=== PATIENT | female | born 1980 | race Caucasian/White ===

== ENCOUNTER 2024-10-17 15:10 | Outpatient (AMB) | payer BC, SELFPAY ==
--- OUTSIDE RECORDS SUMMARY | 2024-07-31 09:00 | XMS_ITS ---
Author Organization [facility] Address [address] [place] [address] Care Team Providers Care Automotive Salesperson Name Role Phone LEAH MENEZES Primary Care Provider ERIC Ross [facility] [phone] Encounters Encounter Location Date Provider Diagnosis [facility] [address] [address] 07/31/2024 ERIC COATS Plan Of Treatment No Information Progress Notes * BRADLEY LINDSEYDOB:1980 (44 yo F)Acc No.[id number]:07/31/2024 Patient: Tavo LOW BRADLEY Provider: Travis COATS PA-C :1980 A ge:44 Y S ex:Female Date:07/31/2024 Address:[address] [place], [place] [address]Y [facility] Pcp:LEAH MENEZES Subjective: * Chief Complaints: * * Medical History: Objective: * Vitals: Assessment: Plan: * Treatment: * Images: Billing Information: * Visit Code: * Procedure Codes: * Electronic signature of LEONOR COATS PA-C on 10/17/2024 at 05:30 PM EDT Sign off status: Pending * Provider: Travis COATS PA-C Date: 07/31/2024 Generated for Lora anthony/Geraldine/eTesvin on: 10/17/2024 05:30 PM EDT
--- OUTSIDE RECORDS SUMMARY | 2024-10-05 10:30 | XMS_ITS ---
Author Organization [facility] [address] Address [address] [place] [address] Care Team Providers Care Furniture Inspector Name Role Phone LEAH MENEZES Primary Care Provider ERIC Ross [facility] [phone] Encounters Encounter Location Date Provider Diagnosis [facility] [address] [address] 10/05/2024 ERIC COATS Plan Of Treatment No Information Progress Notes * BRADLEY LINDSEYDOB:1980 (44 yo F)Acc No.[id number]:10/05/2024 Patient: Tavo LOW BRADLEY Provider: Travis COATS PA-C :1980 A ge:44 Y S ex:Female Date:10/05/2024 Address:[address] [place], [place] [address]Y [facility] Pcp:LEAH MENEZES Subjective: * Chief Complaints: * * Medical History: Objective: * Vitals: Assessment: Plan: * Treatment: * Images: Billing Information: * Visit Code: * Procedure Codes: * Electronic signature of LEONOR COATS PA-C on 10/17/2024 at 05:31 PM EDT Sign off status: Pending * Provider: Travis COATS PA-C Date: 10/05/2024 Generated for Lora anthony/Geraldine/eTesvin on: 10/17/2024 05:31 PM EDT
--- NOTE | 2024-10-17 15:17 | MHC.OFFVIS ---
Intake Visit Reasons: recurrent kidney stones Intake Note: New Patient is present for recurrent kidney stones Urology Rx:none Blood Thinners:none Imaging completed:none Biophysics Scientist Required: No Accompanied by: Self / Same As Patient Allergies amoxicillin (AMOXICILLIN) Allergy (Unknown, Verified 10/17/24 15:18) RASH Penicillins (PENICILLINS) Allergy (Unknown, Verified 10/17/24 15:18) RASH Sulfa (Sulfonamide Antibiotics) (SULFA(SULFONAMIDE ANTIBIOTICS)) Allergy (Unknown, Verified 10/17/24 15:18) DIFFICULTY BREATHING HPI Comments Details: Dai is a pleasant female. She is a patient of . She is seen for the following urologic conditions - nephrolithiasis Recurrent stone former - stone composition struvite 70%, appetite 30% Initiate trimethoprim Three-month follow-up repeat ultrasound Encouraged to decrease salt intake Discussed risk factor for struvite stone recurrence. Nephrolithiasis initial evaluation for nephrolithiasis, recurrent stone former First stone form 2023. Recurrent formation. Imaging - 08/02 CT Scan bilateral stones Stone composition - see above 24 hour urine evaluation - none on file Interventions - 08/02 bilateral ureteroscopy - Dr Silva Current therapeutic plan - surveillance imaging - low-dose suppression antibiotic for 3 to six-month Review of Systems Const Denies chills and Denies fever(s) Card Reports no additional complaints and Denies syncope Resp Denies cough GI Denies abdominal pain and Denies heartburn Reports as per HPI and Denies change in libido Neuro Denies syncope Psych Denies change in libido Endo Denies change in libido Physical Exam Const General: cooperative, healthy appearing, comfortable and no acute distress Orientation/consciousness: patient oriented x3 HEENT Face and sinus: Yes normal facial exam Mouth: moist mucous membranes Neck Neck: Yes normal visual inspection, Yes full ROM and Yes trachea midline Chest Chest palpation & inspection: normal inspection of the chest Resp Effort & Inspection: normal respiratory effort, able to speak in complete sentences and no respiratory distress GI Inspection: Yes normal to inspection Back/Spine/Pelvis Cervical Spine: normal cervical lordosis Thoracic/Lumbar Spine: thoracic and lumbar spine normal to inspection Skin General skin exam: no rashes or lesions noted Neuro General: patient oriented x3, gait normal, tone normal and moves all extremities Extrem General: Yes normal to inspection and Yes capillary refill normal Results AMB Urinalysis, Automated UA Leukoctes 0 Sarmad/uL Last Edit by DAWIT Liu on 10/17/24 16:28 UA Nitrite Negative Last Edit by Adrienne Song [facility] on 10/17/24 16:28 UA Urobilinogen 0.2 mg/dL Last Edit by Adrienne Song [facility] on 10/17/24 16:28 UA Protein 0 mg/dL Last Edit by Adrienne Song [facility] on 10/17/24 16:28 UA pH 6.0 Last Edit by Adrienne Song [facility] on 10/17/24 16:28 UA Blood 10 Guru/uL Last Edit by Adrienne Song [facility] on 10/17/24 16:28 UA Specific [place] 1.020 Last Edit by Adrienne Song [facility] on 10/17/24 16:28 UA Ketone Negative Last Edit by Adrienne Song [facility] on 10/17/24 16:28 UA Bilirubin 0 mg/dL Last Edit by Adrienne Song [facility] on 10/17/24 16:28 UA Glucose 0 mg/dL Last Edit by Adrienne Song [facility] on 10/17/24 16:28 Assessment & Plan Assessment & Plan (1) Bilateral nephrolithiasis: Code(s): N20.0 - Calculus of kidney Category: Medical Plan Antibiotic suppression Three-month follow-up Orders: Orders US renal BI 3 Months N20.0 - Calculus of kidney AMB Urinalysis Automated Today Z13.9 - Encounter for screening, unspecified Medications: New trimethoprim 100 mg PO DAILY 90 tabs 1RF 90 days N20.0 - Calculus of kidney, R33.9 - Retention of urine, unspecified Patient Instructions: This note is constructed using voice recognition software. While every effort has been made to ensure accuracy slubber runner errors may have been included. Imaging studies, laboratory and physical exam results were discussed and reviewed in detail. No major barriers to patient understanding were identified. An opportunity to ask questions regarding the treatment plan was provided. All questions were answered. The patient expressed understanding and agreement with the above treatment plan. The patient is aware they should contact our office by phone for worsening of their current condition or the appearance of new urologic symptoms. Compliance is encouraged with any medications and followup testing that is ordered. It is a privilege to participate in the urologic care of your patient. If you have any questions or concerns regarding treatment for the above conditions, or other urologic issues, please do not hesitate to contact me. The office telephone contact is [phone]. Sincerely, Dr Raul Noyola MD, [facility] - Urology Compassionate Specialist Care for the Genitourinary System Coding Level of Care Code New Pt Level 4 (78629) Diagnoses Bilateral nephrolithiasis N20.0
--- OUTSIDE RECORDS SUMMARY | 2024-10-17 17:31 | XMS_ITS | Encounter Summary ---
Author Organization [facility] Address [address] [place] [address] Care Team Providers Care Heater Installer Name Role Phone Sakshi Miller SEED SALES MANAGER Primary Care Provider [phone] Encounter Details Date Type Department Care Team (Late st Contact Info) Description 06/21/2024 Lab Requisition [facility] - Main Lab [address] [place] [id number] Tahira Ruff NP [address] [facility] [address] [place] [address] Calculus of kidney Social History Tobacco Use Types Packs/Day Years Used Date Smoking Tobacco: Never Assessed Comments Unknown Sex and Gender Information Value Date Recorded Sex Assigned at Not on file Legal Sex Female 1:24 PM EDT Gender Identity Not on file Sexual Orientation Not on file documented as of this encounter Plan of Treatment Not on file documented as of this encounter Procedures Procedure Name Priority Date/Time Associated Diagnosis Comments STONE ANALYSIS Routine 06/21/2024 12:00 AM EDT Calculus of kidney documented in this encounter Results * Stone analysis (06/21/2024 12:00 AM EDT) Component(s) See below 06/27/2024 1:43 PM EDT [facility] Comment: 30% Carbonate apatite (Dahllite) 70% Ammonium-magnesium phosphate hexahydrate (Struvite) Stone Weight 0.0230 g 06/27/2024 1:43 PM EDT [facility] Comment: This test was developed and its performance characteristics determined by [facility] in a manner consistent with CLIA requirements. This test has not been cleared or approved by the U.S. Food and Drug Administration. Test performed at [facility], [address], [place] [address] Magdalena Brown MD, PhD - Assistant Director Of Public Works Calculus 06/21/2024 06/21/2024 1:3 2 PM EDT Tahira Ruff NP LAB BODY FLUIDS AND STOOL S ORDERABLES Final Result [facility] [address] [place] [address] documented in this encounter Visit Diagnoses Diagnosis Calculus of kidney documented in this encounter Care Teams Heater Installer Relationship Specialty Start Date End Date Sakshi Miller NP [address] [place] [address] PCP - General Family Medicine 06/21/24 documented as of this encounter
--- OUTSIDE RECORDS SUMMARY | 2024-10-17 17:31 | XMS_ITS | Patient Health Record ---
Author Organization [facility] [address] Address [address] [place] [address] Care Team Providers Care Joint Runner Name Role Phone HUAN MENEZESA Primary Care Provider UnavailERIC Kaiser Unavailable [phone] AMY WANG Unavailable [phone] JEANA STEIN Unavailable [phone] Allergies Allergen (clinical drug ingredient) Drug/Non Drug Allergy documented on EMR Reaction Allergy Type Onset Date Status amoxicillin Amoxicillin rash Drug Allergy Act homer Penicillin rash Drug Allergy Active Substance with sulfonamide structure and antibacterial mechanism of action (substance) Sulfa Antibiotics rash Drug Allergy Active Reason For Referral No Information Medications Medication SIG (Take, Route, Frequency, Duration) Notes Start Date End Date Status Buprenorphine HCl-Naloxone HCl 8-2 MG Sublingual; Duration: 28 Days Active Wegovy 0.25mg 0.25 MG/0.5ML Inject 0.25mg Subcutaneous once weekly; Duration: 90 days 09/11/2024 Active Zepbound 2.5 MG/0.5ML Inject 2.5mg Subcutaneous weekly; Duration: 30 days Active Famotidine 40 MG 1 tablet Orally at bedtime; Duration: 30 days As needed 07/25/2024 Not-Taking Levothyroxine Sodium 25 MCG Oral; Duration: 90 Days Acti ve Zepbound 2.5 MG/0.5ML Subcutaneous; Dura tion: 28 Days Not-Taking Problems Problem Type SNOMED Code ICD Code Onset Dates Problem Status W/U Status Risk Notes Problem Overactive bladder (286334769) Overactive bladder (N32.81) Active confirmed Problem Prediabetes (013015897) Prediabetes (R73.03) Active confirmed Problem Morbid obesity (126921453) Morbid obesity (E66.01) Active confirmed Problem Acquired hypothyroidism (382617793) Acquired hypothyroidism (E03.9) Active confirmed Problem Nephrolithiasis (61479256) Nephrolithiasis (N20.0) Active confirmed Problem Body mass index 40+ - morbidly obese (263200989) BMI 40.0-44.9, adult (Z68.41) Active confirmed Problem Indigestion (985987925) Indigestion (K30) Active confirmed Problem History of opioid abuse (943080528565390) History of opioid abuse (F11.11) Active confirmed Vital Signs Heart Rate 83 /min 08/24/2024 Oximetry 98 % 08/24/2024 Blood pressure diastolic 70 mm Hg 08/24/2024 Height 59 in 08/24/2024 Blood pressure systolic 114 mm Hg 08/24/2024 Weight 207.5 lbs 08/24/2024 BMI 41.91 kg/m2 08/24/2024 Encounters Encounter Location Date Provider Diagnosis [facility] [address] [address] 04/19/2024 JEANA ORLINHOT [facility] [address] [address] 04/26/2024 JEANA ORLINHOT [facility] [address] [place] [address] 05/01/2024 TALAL WANG [facility] [address] [place] [address] 05/08/2024 TALAL WANG [facility] [address] [place] [address] 05/23/2024 TALAL WANG [facility] [address] [place] [address] 05/29/2024 TALAL WANG [facility] [address] [address] 06/08/2024 JEANA HCAZT [facility] [address] [address] 04/11/2024 ERIC LIUHAM Morbid obesity E66.0 1 ; BMI 45.0-49.9, adult Z68.42 ; Prediabetes R73.03 and Acquired hypothyroidism E03.9 [facility] [address] 05/16/2024 [facility] Morbid obesity E66.0 1 ; BMI 40.0-44.9, adult Z68.41 ; Prediabetes R73.03 ; Acquired hypothyroidism E03.9 and Nutritional counseling Z71.3 [facility] [address] [facility] [address] [place], [place] 06/19/2024 [facility] Morbid obesity E66.0 1 ; BMI 40.0-44.9, adult Z68.41 ; Prediabetes R73.03 ; Acquired hypothyroidism E03.9 ; Nutritional counseling Z71.3 and Encounter for examination of blood pressure without abnormal findings Z01.30 [facility] [address] [facility] [address] [place], [place] 07/25/2024 [facility] Morbid obesity E66.0 1 ; BMI 40.0-44.9, adult Z68.41 ; Prediabetes R73.03 ; Acquired hypothyroidism E03.9 ; Indigestion K30 ; Nutritional counseling Z71.3 and Encounter for examination of blood pressure without abnormal findings Z01.30 [facility] [address] [facility] [address] [place], [place] 08/24/2024 [facility] Morbid obesity E66.0 1 ; BMI 40.0-44.9, adult Z68.41 ; Prediabetes R73.03 ; Acquired hypothyroidism E03.9 ; Nutritional counseling Z71.3 and Encounter for examination of blood pressure without abnormal findings Z01.30 [facility] [address] [facility] [address] [place] [address] 04/11/2024 [facility] [address] [place] [address] 05/01/2024 [facility] [address] [place] [address] 06/17/2024 [facility] [address] [place] [address] 06/21/2024 [facility] [address] 08/07/2024 [facility] [address] 06/14/2024 [facility] [address] [facility] [address] [place] [address] 07/20/2024 ERIC LIUHAM [facility] [address] [address] 07/20/2024 ERIC LIUHAM [facility] [address] [address] 07/21/2024 ERIC LIUHAM [facility] [address] [address] 07/24/2024 ERIC LIUHAM [facility] [address] [address] 08/16/2024 ERIC LIUHAM [facility] [address] [address] 09/08/2024 ERIC LIUHAM [facility] [address] [address] 09/11/2024 ERIC LIUHAM [facility] [address] [address] 09/12/2024 ERIC COATS Assessments Encounter Date Diagnosis (ICD Code) Assessment Notes Treatment Notes Treatment Clinical Notes Section Notes 04/11/2024 Morbid obesity (ICD-10 - E66.01) Dai is a 43-year-old female with a H prediabetes (A1c 5.7%), anxiety, hypothyroidism, overactive bladder that presents for weight management consult. Patient was reassured and welcomed to the practice. Discussed [facility] holistic and medical approach to weight loss with emphasis on lifestyle modification. Patient is educated that a healthy lifestyle aids in combating obesity as well as reducing the risk of developing obesity-related medical complications including but not limited to diabetes and cardiovascular disease. Detailed education provided about taking steps to initiate sustainable lifestyle changes including incorporating regular physical activity, making healthy diet choices, and prioritizing mental health. Information provided about literature including The Food Rules by Alfred Hagen and Eat Fat Get Lean by Dr Donato Ponce. Handouts including lifestyle checklist, protein content of food, low calorie snacks, and cholesterol information sheet provided. Diagnostic testing/ SECA scale offered. Discussed the importance of regular SECA scale measurements to ensure healthy weight loss. 04/11/2024: Weight: 225, BMI: 45.4. Reviewed SECA/goals for implementing sustainable lifestyle changes. Patient is encouraged to increase physical activity, goal 8-10k steps/day. Also discussed the importance of strength training with proper safety/body mechanics for maintenance of muscle mass/bone health. Patient encouraged to drink 60-80oz water/day. Reviewed nutrition, recommending food diary x 1 week to ensure adequate caloric/protein intake. Goal of 80-100g protein/day. Reviewed risks, benefits, and side effects of weight management medications including phentermine, Topamax, Contrave, metformin, and GLP-1 agonist.Patient interested in GLP-1 agonist Zepbound. Denies personal/family history of medullary thyroid cancer/MEN syndrome. Rx for Zepbound 2.5 mg SC weekly sent to pharmacy. Reviewed proper use, side effects, and expectations for PA process/insurance coverage. If the medication is not covered, patient would like to initiate treatment with compounded semaglutide (as opposed to compounded tirzepatide due to cost difference). Will initiate treatment with compounded semaglutide in office today. 0.25 mg administered SC. Will transition to Zepbound should insurance cover this medication. After consultation and careful review of medical history, this patient would benefit from Zepbound based off of the following criteria met: Patient is over the age of 18 with a BMI of 45. Additional comorbidities include prediabetes, hypothyroidism. Patient has trialed other methods of weight loss including improving diet and exercise without success. This medication is prescribed by or in consultation with a board-certified obesity and weight management physician (Dr. Amy Wang or Dr. Layne Wang). All questions answered to the patient's satisfaction. Patient demonstrates understanding of diagnosis and treatments discussed. Follow-up in 4 weeks, sooner should any questions/concerns arise. Case discussed with collaborating physician Mami Wang who has reviewed the assessment/plan. Chart, medications, labs, and vital signs reviewed. Dictation completed with the use of ScaleIO voice recognition software, prone to medical misidentifications and grammatical errors. All errors are unintentional. Although the practitioner does try to identify and correct errors, some may be present. Please do not hesitate to contact the practitioner for clarification. Total time was 60 minutes spent with >50% on coordination of care and patient education. 04/11/2024 BMI 45.0-49.9, adult (ICD-10 - Z68.42) Dai is a 43-year-old female with a PMH prediabetes (A1c 5.7%), anxiety, hypothyroidism, overactive bladder that presents for weight management consult. Patient was reassured and welcomed to the practice. Discussed [facility] holistic and medical approach to weight loss with emphasis on lifestyle modification. Patient is educated that a healthy lifestyle aids in combating obesity as well as reducing the risk of developing obesity-related medical complications including but not limited to diabetes and cardiovascular disease. Detailed education provided about taking steps to initiate sustainable lifestyle changes including incorporating regular physical activity, making healthy diet choices, and prioritizing mental health. Information provided about literature including The Food Rules by Alfred Hagen and Eat Fat Get Lean by Dr Donato Ponce. Handouts including lifestyle checklist, protein content of food, low calorie snacks, and cholesterol information sheet provided. Diagnostic testing/ SECA scale offered. Discussed the importance of regular SECA scale measurements to ensure healthy weight loss. 04/11/2024: Weight: 225, BMI: 45.4. Reviewed SECA/goals for implementing sustainable lifestyle changes. Patient is encouraged to increase physical activity, goal 8-10k steps/day. Also discussed the importance of strength training with proper safety/body mechanics for maintenance of muscle mass/bone health. Patient encouraged to drink 60-80oz water/day. Reviewed nutrition, recommending food diary x 1 week to ensure adequate caloric/protein intake. Goal of 80-100g protein/day. Reviewed risks, benefits, and side effects of weight management medications including phentermine, Topamax, Contrave, metformin, and GLP-1 agonist.Patient interested in GLP-1 agonist Zepbound. Denies personal/family history of medullary thyroid cancer/MEN syndrome. Rx for Zepbound 2.5 mg SC weekly sent to pharmacy. Reviewed proper use, side effects, and expectations for PA process/insurance coverage. If the medication is not covered, patient would like to initiate treatment with compounded semaglutide (as opposed to compounded tirzepatide due to cost difference). Will initiate treatment with compounded semaglutide in office today. 0.25 mg administered SC. Will transition to Zepbound should insurance cover this medication. After consultation and careful review of medical history, this patient would benefit from Zepbound based off of the following criteria met: Patient is over the age of 18 with a BMI of 45. Additional comorbidities include prediabetes, hypothyroidism. Patient has trialed other methods of weight loss including improving diet and exercise without success. This medication is prescribed by or in consultation with a board-certified obesity and weight management physician (Dr. Amy Wang or Dr. Layne Wang). All questions answered to the patient's satisfaction. Patient demonstrates understanding of diagnosis and treatments discussed. Follow-up in 4 weeks, sooner should any questions/concerns arise. Case discussed with collaborating physician Mami Wang who has reviewed the assessment/plan. Chart, medications, labs, and vital signs reviewed. Dictation completed with the use of Scale[employer] voice recognition software, prone to medical misidentifications and grammatical errors. All errors are unintentional. Although the practitioner does try to identify and correct errors, some may be present. Please do not hesitate to contact the practitioner for clarification. Total time was 60 minutes spent with >50% on coordination of care and patient education. 05/16/2024 Morbid obesity (ICD-10 - E66.01) Dai is a 43-year-old female with a PMH prediabetes (A1c 5.7%), anxiety, hypothyroidism, overactive bladder that presents for weight management follow-up. Reviewed [facility] holistic and medical approach to weight loss with emphasis on lifestyle modification. 05/16/24: Weight: 220 BMI: 44. Patient down 5 pounds. SECA reviewed, reveals maintenance of muscle mass. Waist circumference is down. Discussed importance of continued portion control and prioritization of nutrient rich/protein dense foods. Patient encouraged to continue walking regularly with added strength training 2-3 times weekly. Recommending increased water intake, goal 60 ounces/day. Plan to continue compounded semaglutide 0.5 mg SC weekly and follow-up in 1 month. 04/11/2024: Weight: 225, BMI: 45.4. Reviewed SECA/goals for implementing sustainable lifestyle changes. Patient is encouraged to increase physical activity, goal 8-10k steps/day. Also discussed the importance of strength training with proper safety/body mechanics for maintenance of muscle mass/bone health. Patient encouraged to drink 60-80oz water/day. Reviewed nutrition, recommending food diary x 1 week to ensure adequate caloric/protein intake. Goal of 80-100g protein/day. Reviewed risks, benefits, and side effects of weight management medications including phentermine, Topamax, Contrave, metformin, and GLP-1 agonist.Patient interested in GLP-1 agonist Zepbound. Denies personal/family history of medullary thyroid cancer/MEN syndrome. Rx for Zepbound 2.5 mg SC weekly sent to pharmacy. Reviewed proper use, side effects, and expectations for PA process/insurance coverage. If the medication is not covered, patient would like to initiate treatment with compounded semaglutide (as opposed to compounded tirzepatide due to cost difference). Will initiate treatment with compounded semaglutide in office today. 0.25 mg administered SC. Will transition to Zepbound should insurance cover this medication. All questions answered to the patient's satisfaction. Patient demonstrates understanding of diagnosis and treatments discussed. Follow-up in 4 weeks, sooner should any questions/concerns arise. Case discussed with collaborating physician Mami Wang who has reviewed the assessment/plan. Chart, medications, labs, and vital signs reviewed. Dictation completed with the use of Scale[employer] voice recognition software, prone to medical misidentifications and grammatical errors. All errors are unintentional. Although the practitioner does try to identify and correct errors, some may be present. Please do not hesitate to contact the practitioner for clarification. Total time was 30 minutes spent with >50% on coordination of care and patient education. 05/16/2024 BMI 40.0-44.9, adult (ICD-10 - Z68.41) Dai is a 43-year-old female with a PMH prediabetes (A1c 5.7%), anxiety, hypothyroidism, overactive bladder that presents for weight management follow-up. Reviewed [facility] holistic and medical approach to weight loss with emphasis on lifestyle modification. 05/16/24: Weight: 220 BMI: 44. Patient down 5 pounds. SECA reviewed, reveals maintenance of muscle mass. Waist circumference is down. Discussed importance of continued portion control and prioritization of nutrient rich/protein dense foods. Patient encouraged to continue walking regularly with added strength training 2-3 times weekly. Recommending increased water intake, goal 60 ounces/day. Plan to continue compounded semaglutide 0.5 mg SC weekly and follow-up in 1 month. 04/11/2024: Weight: 225, BMI: 45.4. Reviewed SECA/goals for implementing sustainable lifestyle changes. Patient is encouraged to increase physical activity, goal 8-10k steps/day. Also discussed the importance of strength training with proper safety/body mechanics for maintenance of muscle mass/bone health. Patient encouraged to drink 60-80oz water/day. Reviewed nutrition, recommending food diary x 1 week to ensure adequate caloric/protein intake. Goal of 80-100g protein/day. Reviewed risks, benefits, and side effects of weight management medications including phentermine, Topamax, Contrave, metformin, and GLP-1 agonist.Patient interested in GLP-1 agonist Zepbound. Denies personal/family history of medullary thyroid cancer/MEN syndrome. Rx for Zepbound 2.5 mg SC weekly sent to pharmacy. Reviewed proper use, side effects, and expectations for PA process/insurance coverage. If the medication is not covered, patient would like to initiate treatment with compounded semaglutide (as opposed to compounded tirzepatide due to cost difference). Will initiate treatment with compounded semaglutide in office today. 0.25 mg administered SC. Will transition to Zepbound should insurance cover this medication. All questions answered to the patient's satisfaction. Patient demonstrates understanding of diagnosis and treatments discussed. Follow-up in 4 weeks, sooner should any questions/concerns arise. Case discussed with collaborating physician Mami Wang who has reviewed the assessment/plan. Chart, medications, labs, and vital signs reviewed. Dictation completed with the use of ScaleIO voice recognition software, prone to medical misidentifications and grammatical errors. All errors are unintentional. Although the practitioner does try to identify and correct errors, some may be present. Please do not hesitate to contact the practitioner for clarification. Total time was 30 minutes spent with >50% on coordination of care and patient education. 07/25/2024 Morbid obesity (ICD-10 - E66.01) Dai is a 44-year-old female with a PMH prediabetes (A1c 5.7%), anxiety, hypothyroidism, overactive bladder that presents for weight management follow-up. Reviewed [facility] holistic and medical approach to weight loss with emphasis on lifestyle modification. 07/25/2024: Weight: 207.2, BMI: 41.8. (-9lbs) SECA reviewed, reveals fat loss with improvement in muscle mass. She is encouraged to continue to reintroduce bland foods as tolerated. Discussed importance of dietary fiber and adequate hydration. Patient will remain off of Zepbound with plan to reinitiate at 2.5 mg dose next Wednesday. Recommending heavy hydration the day of the injection and use of as needed famotidine with goal of improving symptoms of indigestion. She may continue to use as needed Zofran for nausea. 06/19/2024: Weight: 216, BMI: 43.7. (-4lbs) 05/16/24: Weight: 220 BMI: 44. (-5lbs) 04/11/2024: Weight: 225, BMI: 45.4. All questions answered to the patient's satisfaction. Patient demonstrates understanding of diagnosis and treatments discussed. Follow-up in 4 weeks, sooner should any questions/concerns arise. Case discussed with collaborating physician Mami Wang who has reviewed the assessment/plan. Chart, medications, labs, and vital signs reviewed. Dictation completed with the use of [employer]IO voice recognition software, prone to medical misidentifications and grammatical errors. All errors are unintentional. Although the practitioner does try to identify and correct errors, some may be present. Please do not hesitate to contact the practitioner for clarification. Total time was 30 minutes spent with >50% on coordination of care and patient education. 07/25/2024 BMI 40.0-44.9, adult (ICD-10 - Z68.41) Dai is a 44-year-old female with a H prediabetes (A1c 5.7%), anxiety, hypothyroidism, overactive bladder that presents for weight management follow-up. Reviewed [facility] holistic and medical approach to weight loss with emphasis on lifestyle modification. 07/25/2024: Weight: 207.2, BMI: 41.8. (-9lbs) SECA reviewed, reveals fat loss with improvement in muscle mass. She is encouraged to continue to reintroduce bland foods as tolerated. Discussed importance of dietary fiber and adequate hydration. Patient will remain off of Zepbound with plan to reinitiate at 2.5 mg dose next Wednesday. Recommending heavy hydration the day of the injection and use of as needed famotidine with goal of improving symptoms of indigestion. She may continue to use as needed Zofran for nausea. 06/19/2024: Weight: 216, BMI: 43.7. (-4lbs) 05/16/24: Weight: 220 BMI: 44. (-5lbs) 04/11/2024: Weight: 225, BMI: 45.4. All questions answered to the patient's satisfaction. Patient demonstrates understanding of diagnosis and treatments discussed. Follow-up in 4 weeks, sooner should any questions/concerns arise. Case discussed with collaborating physician Mami Wang who has reviewed the assessment/plan. Chart, medications, labs, and vital signs reviewed. Dictation completed with the use of [employer] voice recognition software, prone to medical misidentifications and grammatical errors. All errors are unintentional. Although the practitioner does try to identify and correct errors, some may be present. Please do not hesitate to contact the practitioner for clarification. Total time was 30 minutes spent with >50% on coordination of care and patient education. 08/24/2024 Morbid obesity (ICD-10 - E66.01) Dai is a 44-year-old female with a H prediabetes (A1c 5.7%), anxiety, hypothyroidism, overactive bladder that presents for weight management follow-up. Reviewed [facility] holistic and medical approach to weight loss with emphasis on lifestyle modification. 08/24/2024: Weight: 207.5, BMI: 41.9. SECA reviewed. Patient has maintained weight loss successfully in the absence of GLP-1 medication. She is encouraged to continue maintaining lifestyle changes. Plan to reinitiate treatment with Zepbound 2.5 mg SC weekly upon returning home from vacation and follow-up in 4 to 6 weeks. 07/25/2024: Weight: 207.2, BMI: 41.8. (-9lbs) 06/19/2024: Weight: 216, BMI: 43.7. (-4lbs) 05/16/24: Weight: 220 BMI: 44. (-5lbs) 04/11/2024: Weight: 225, BMI: 45.4. All questions answered to the patient's satisfaction. Patient demonstrates understanding of diagnosis and treatments discussed. Follow-up in 4 weeks, sooner should any questions/concerns arise. Case discussed with collaborating physician Mami Wang who has reviewed the assessment/plan. Chart, medications, labs, and vital signs reviewed. Dictation completed with the use of [employer] voice recognition software, prone to medical misidentifications and grammatical errors. All errors are unintentional. Although the practitioner does try to identify and correct errors, some may be present. Please do not hesitate to contact the practitioner for clarification. Total time was 30 minutes spent with >50% on coordination of care and patient education. 08/24/2024 BMI 40.0-44.9, adult (ICD-10 - Z68.41) Dai is a 44-year-old female with a PMH prediabetes (A1c 5.7%), anxiety, hypothyroidism, overactive bladder that presents for weight management follow-up. Reviewed [facility] holistic and medical approach to weight loss with emphasis on lifestyle modification. 08/24/2024: Weight: 207.5, BMI: 41.9. SECA reviewed. Patient has maintained weight loss successfully in the absence of GLP-1 medication. She is encouraged to continue maintaining lifestyle changes. Plan to reinitiate treatment with Zepbound 2.5 mg SC weekly upon returning home from vacation and follow-up in 4 to 6 weeks. 07/25/2024: Weight: 207.2, BMI: 41.8. (-9lbs) 06/19/2024: Weight: 216, BMI: 43.7. (-4lbs) 05/16/24: Weight: 220 BMI: 44. (-5lbs) 04/11/2024: Weight: 225, BMI: 45.4. All questions answered to the patient's satisfaction. Patient demonstrates understanding of diagnosis and treatments discussed. Follow-up in 4 weeks, sooner should any questions/concerns arise. Case discussed with collaborating physician Mami Wang who has reviewed the assessment/plan. Chart, medications, labs, and vital signs reviewed. Dictation completed with the use of [employer] voice recognition software, prone to medical misidentifications and grammatical errors. All errors are unintentional. Although the practitioner does try to identify and correct errors, some may be present. Please do not hesitate to contact the practitioner for clarification. Total time was 30 minutes spent with >50% on coordination of care and patient education. 06/19/2024 Morbid obesity (ICD-10 - E66.01) Dai is a 43-year-old female with a PMH prediabetes (A1c 5.7%), anxiety, hypothyroidism, overactive bladder that presents for weight management follow-up. Reviewed [facility] holistic and medical approach to weight loss with emphasis on lifestyle modification. 06/19/2024: Weight: 216, BMI: 43.7. Patient down 4 pounds.SECA reviewed, reveals loss of fat and muscle mass. Reviewed importance of prioritization of protein intake, goal 25-30 g/meal. She is encouraged to continue hydrating adequately, goal 60-80 ounces/day. Also recommending continued walking with added strength training 3 times weekly. Plan to increase dose of Zepbound to 5 mg SC weekly and follow-up in 6 weeks (patient will finish that she has have Zepbound 2.5 mg). 05/16/24: Weight: 220 BMI: 44. Patient down 5 pounds. SECA reviewed, reveals maintenance of muscle mass. Waist circumference is down. Discussed importance of continued portion control and prioritization of nutrient rich/protein dense foods. Patient encouraged to continue walking regularly with added strength training 2-3 times weekly. Recommending increased water intake, goal 60 ounces/day. Plan to continue compounded semaglutide 0.5 mg SC weekly and follow-up in 1 month. 04/11/2024: Weight: 225, BMI: 45.4. Reviewed SECA/goals for implementing sustainable lifestyle changes. Patient is encouraged to increase physical activity, goal 8-10k steps/day. Also discussed the importance of strength training with proper safety/body mechanics for maintenance of muscle mass/bone health. Patient encouraged to drink 60-80oz water/day. Reviewed nutrition, recommending food diary x 1 week to ensure adequate caloric/protein intake. Goal of 80-100g protein/day. Reviewed risks, benefits, and side effects of weight management medications including phentermine, Topamax, Contrave, metformin, and GLP-1 agonist.Patient interested in GLP-1 agonist Zepbound. Denies personal/family history of medullary thyroid cancer/MEN syndrome. Rx for Zepbound 2.5 mg SC weekly sent to pharmacy. Reviewed proper use, side effects, and expectations for PA process/insurance coverage. If the medication is not covered, patient would like to initiate treatment with compounded semaglutide (as opposed to compounded tirzepatide due to cost difference). Will initiate treatment with compounded semaglutide in office today. 0.25 mg administered SC. Will transition to Zepbound should insurance cover this medication. All questions answered to the patient's satisfaction. Patient demonstrates understanding of diagnosis and treatments discussed. Follow-up in 4 weeks, sooner should any questions/concerns arise. Case discussed with collaborating physician Mami Wnag who has reviewed the assessment/plan. Chart, medications, labs, and vital signs reviewed. Dictation completed with the use of [employer] voice recognition software, prone to medical misidentifications and grammatical errors. All errors are unintentional. Although the practitioner does try to identify and correct errors, some may be present. Please do not hesitate to contact the practitioner for clarification. Total time was 30 minutes spent with >50% on coordination of care and patient education. 06/19/2024 BMI 40.0-44.9, adult (ICD-10 - Z68.41) Dai is a 43-year-old female with a PMH prediabetes (A1c 5.7%), anxiety, hypothyroidism, overactive bladder that presents for weight management follow-up. Reviewed [facility] holistic and medical approach to weight loss with emphasis on lifestyle modification. 06/19/2024: Weight: 216, BMI: 43.7. Patient down 4 pounds.SECA reviewed, reveals loss of fat and muscle mass. Reviewed importance of prioritization of protein intake, goal 25-30 g/meal. She is encouraged to continue hydrating adequately, goal 60-80 ounces/day. Also recommending continued walking with added strength training 3 times weekly. Plan to increase dose of Zepbound to 5 mg SC weekly and follow-up in 6 weeks (patient will finish that she has have Zepbound 2.5 mg). 05/16/24: Weight: 220 BMI: 44. Patient down 5 pounds. SECA reviewed, reveals maintenance of muscle mass. Waist circumference is down. Discussed importance of continued portion control and prioritization of nutrient rich/protein dense foods. Patient encouraged to continue walking regularly with added strength training 2-3 times weekly. Recommending increased water intake, goal 60 ounces/day. Plan to continue compounded semaglutide 0.5 mg SC weekly and follow-up in 1 month. 04/11/2024: Weight: 225, BMI: 45.4. Reviewed SECA/goals for implementing sustainable lifestyle changes. Patient is encouraged to increase physical activity, goal 8-10k steps/day. Also discussed the importance of strength training with proper safety/body mechanics for maintenance of muscle mass/bone health. Patient encouraged to drink 60-80oz water/day. Reviewed nutrition, recommending food diary x 1 week to ensure adequate caloric/protein intake. Goal of 80-100g protein/day. Reviewed risks, benefits, and side effects of weight management medications including phentermine, Topamax, Contrave, metformin, and GLP-1 agonist.Patient interested in GLP-1 agonist Zepbound. Denies personal/family history of medullary thyroid cancer/MEN syndrome. Rx for Zepbound 2.5 mg SC weekly sent to pharmacy. Reviewed proper use, side effects, and expectations for PA process/insurance coverage. If the medication is not covered, patient would like to initiate treatment with compounded semaglutide (as opposed to compounded tirzepatide due to cost difference). Will initiate treatment with compounded semaglutide in office today. 0.25 mg administered SC. Will transition to Zepbound should insurance cover this medication. All questions answered to the patient's satisfaction. Patient demonstrates understanding of diagnosis and treatments discussed. Follow-up in 4 weeks, sooner should any questions/concerns arise. Case discussed with collaborating physician Mami Wang who has reviewed the assessment/plan. Chart, medications, labs, and vital signs reviewed. Dictation completed with the use of [employer] voice recognition software, prone to medical misidentifications and grammatical errors. All errors are unintentional. Although the practitioner does try to identify and correct errors, some may be present. Please do not hesitate to contact the practitioner for clarification. Total time was 30 minutes spent with >50% on coordination of care and patient education. 06/19/2024 Prediabetes (ICD-10 - R73.03) Dai is a 43-year-old female with a PMH prediabetes (A1c 5.7%), anxiety, hypothyroidism, overactive bladder that presents for weight management follow-up. Reviewed [facility] holistic and medical approach to weight loss with emphasis on lifestyle modification. 06/19/2024: Weight: 216, BMI: 43.7. Patient down 4 pounds.SECA reviewed, reveals loss of fat and muscle mass. Reviewed importance of prioritization of protein intake, goal 25-30 g/meal. She is encouraged to continue hydrating adequately, goal 60-80 ounces/day. Also recommending continued walking with added strength training 3 times weekly. Plan to increase dose of Zepbound to 5 mg SC weekly and follow-up in 6 weeks (patient will finish that she has have Zepbound 2.5 mg). 05/16/24: Weight: 220 BMI: 44. Patient down 5 pounds. SECA reviewed, reveals maintenance of muscle mass. Waist circumference is down. Discussed importance of continued portion control and prioritization of nutrient rich/protein dense foods. Patient encouraged to continue walking regularly with added strength training 2-3 times weekly. Recommending increased water intake, goal 60 ounces/day. Plan to continue compounded semaglutide 0.5 mg SC weekly and follow-up in 1 month. 04/11/2024: Weight: 225, BMI: 45.4. Reviewed SECA/goals for implementing sustainable lifestyle changes. Patient is encouraged to increase physical activity, goal 8-10k steps/day. Also discussed the importance of strength training with proper safety/body mechanics for maintenance of muscle mass/bone health. Patient encouraged to drink 60-80oz water/day. Reviewed nutrition, recommending food diary x 1 week to ensure adequate caloric/protein intake. Goal of 80-100g protein/day. Reviewed risks, benefits, and side effects of weight management medications including phentermine, Topamax, Contrave, metformin, and GLP-1 agonist.Patient interested in GLP-1 agonist Zepbound. Denies personal/family history of medullary thyroid cancer/MEN syndrome. Rx for Zepbound 2.5 mg SC weekly sent to pharmacy. Reviewed proper use, side effects, and expectations for PA process/insurance coverage. If the medication is not covered, patient would like to initiate treatment with compounded semaglutide (as opposed to compounded tirzepatide due to cost difference). Will initiate treatment with compounded semaglutide in office today. 0.25 mg administered SC. Will transition to Zepbound should insurance cover this medication. All questions answered to the patient's satisfaction. Patient demonstrates understanding of diagnosis and treatments discussed. Follow-up in 4 weeks, sooner should any questions/concerns arise. Case discussed with collaborating physician Mami Wang who has reviewed the assessment/plan. Chart, medications, labs, and vital signs reviewed. Dictation completed with the use of Dragon voice recognition software, prone to medical misidentifications and grammatical errors. All errors are unintentional. Although the practitioner does try to identify and correct errors, some may be present. Please do not hesitate to contact the practitioner for clarification. Total time was 30 minutes spent with >50% on coordination of care and patient education. 07/25/2024 Prediabetes (ICD-10 - R73.03) Dai is a 44-year-old female with a PMH prediabetes (A1c 5.7%), anxiety, hypothyroidism, overactive bladder that presents for weight management follow-up. Reviewed [facility] holistic and medical approach to weight loss with emphasis on lifestyle modification. 07/25/2024: Weight: 207.2, BMI: 41.8. (-9lbs) SECA reviewed, reveals fat loss with improvement in muscle mass. She is encouraged to continue to reintroduce bland foods as tolerated. Discussed importance of dietary fiber and adequate hydration. Patient will remain off of Zepbound with plan to reinitiate at 2.5 mg dose next Wednesday. Recommending heavy hydration the day of the injection and use of as needed famotidine with goal of improving symptoms of indigestion. She may continue to use as needed Zofran for nausea. 06/19/2024: Weight: 216, BMI: 43.7. (-4lbs) 05/16/24: Weight: 220 BMI: 44. (-5lbs) 04/11/2024: Weight: 225, BMI: 45.4. All questions answered to the patient's satisfaction. Patient demonstrates understanding of diagnosis and treatments discussed. Follow-up in 4 weeks, sooner should any questions/concerns arise. Case discussed with collaborating physician Mami Wang who has reviewed the assessment/plan. Chart, medications, labs, and vital signs reviewed. Dictation completed with the use of [employer] voice recognition software, prone to medical misidentifications and grammatical errors. All errors are unintentional. Although the practitioner does try to identify and correct errors, some may be present. Please do not hesitate to contact the practitioner for clarification. Total time was 30 minutes spent with >50% on coordination of care and patient education. 08/24/2024 Prediabetes (ICD-10 - R73.03) Dai is a 44-year-old female with a PMH prediabetes (A1c 5.7%), anxiety, hypothyroidism, overactive bladder that presents for weight management follow-up. Reviewed [facility] holistic and medical approach to weight loss with emphasis on lifestyle modification. 08/24/2024: Weight: 207.5, BMI: 41.9. SECA reviewed. Patient has maintained weight loss successfully in the absence of GLP-1 medication. She is encouraged to continue maintaining lifestyle changes. Plan to reinitiate treatment with Zepbound 2.5 mg SC weekly upon returning home from vacation and follow-up in 4 to 6 weeks. 07/25/2024: Weight: 207.2, BMI: 41.8. (-9lbs) 06/19/2024: Weight: 216, BMI: 43.7. (-4lbs) 05/16/24: Weight: 220 BMI: 44. (-5lbs) 04/11/2024: Weight: 225, BMI: 45.4. All questions answered to the patient's satisfaction. Patient demonstrates understanding of diagnosis and treatments discussed. Follow-up in 4 weeks, sooner should any questions/concerns arise. Case discussed with collaborating physician Mami Wang who has reviewed the assessment/plan. Chart, medications, labs, and vital signs reviewed. Dictation completed with the use of [employer] voice recognition software, prone to medical misidentifications and grammatical errors. All errors are unintentional. Although the practitioner does try to identify and correct errors, some may be present. Please do not hesitate to contact the practitioner for clarification. Total time was 30 minutes spent with >50% on coordination of care and patient education. 04/11/2024 Prediabetes (ICD-10 - R73.03) Dai is a 43-year-old female with a PMH prediabetes (A1c 5.7%), anxiety, hypothyroidism, overactive bladder that presents for weight management consult. Patient was reassured and welcomed to the practice. Discussed [facility] holistic and medical approach to weight loss with emphasis on lifestyle modification. Patient is educated that a healthy lifestyle aids in combating obesity as well as reducing the risk of developing obesity-related medical complications including but not limited to diabetes and cardiovascular disease. Detailed education provided about taking steps to initiate sustainable lifestyle changes including incorporating regular physical activity, making healthy diet choices, and prioritizing mental health. Information provided about literature including The Food Rules by Alfred Hagen and Eat Fat Get Lean by Dr Donato Ponce. Handouts including lifestyle checklist, protein content of food, low calorie snacks, and cholesterol information sheet provided. Diagnostic testing/ SECA scale offered. Discussed the importance of regular SECA scale measurements to ensure healthy weight loss. 04/11/2024: Weight: 225, BMI: 45.4. Reviewed SECA/goals for implementing sustainable lifestyle changes. Patient is encouraged to increase physical activity, goal 8-10k steps/day. Also discussed the importance of strength training with proper safety/body mechanics for maintenance of muscle mass/bone health. Patient encouraged to drink 60-80oz water/day. Reviewed nutrition, recommending food diary x 1 week to ensure adequate caloric/protein intake. Goal of 80-100g protein/day. Reviewed risks, benefits, and side effects of weight management medications including phentermine, Topamax, Contrave, metformin, and GLP-1 agonist.Patient interested in GLP-1 agonist Zepbound. Denies personal/family history of medullary thyroid cancer/MEN syndrome. Rx for Zepbound 2.5 mg SC weekly sent to pharmacy. Reviewed proper use, side effects, and expectations for PA process/insurance coverage. If the medication is not covered, patient would like to initiate treatment with compounded semaglutide (as opposed to compounded tirzepatide due to cost difference). Will initiate treatment with compounded semaglutide in office today. 0.25 mg administered SC. Will transition to Zepbound should insurance cover this medication. After consultation and careful review of medical history, this patient would benefit from Zepbound based off of the following criteria met: Patient is over the age of 18 with a BMI of 45. Additional comorbidities include prediabetes, hypothyroidism. Patient has trialed other methods of weight loss including improving diet and exercise without success. This medication is prescribed by or in consultation with a board-certified obesity and weight management physician (Dr. Amy Wang or Dr. Layne Wang). All questions answered to the patient's satisfaction. Patient demonstrates understanding of diagnosis and treatments discussed. Follow-up in 4 weeks, sooner should any questions/concerns arise. Case discussed with collaborating physician Mami Wang who has reviewed the assessment/plan. Chart, medications, labs, and vital signs reviewed. Dictation completed with the use of [employer] voice recognition software, prone to medical misidentifications and grammatical errors. All errors are unintentional. Although the practitioner does try to identify and correct errors, some may be present. Please do not hesitate to contact the practitioner for clarification. Total time was 60 minutes spent with >50% on coordination of care and patient education. 05/16/2024 Prediabetes (ICD-10 - R73.03) Dai is a 43-year-old female with a PMH prediabetes (A1c 5.7%), anxiety, hypothyroidism, overactive bladder that presents for weight management follow-up. Reviewed [facility] holistic and medical approach to weight loss with emphasis on lifestyle modification. 05/16/24: Weight: 220 BMI: 44. Patient down 5 pounds. SECA reviewed, reveals maintenance of muscle mass. Waist circumference is down. Discussed importance of continued portion control and prioritization of nutrient rich/protein dense foods. Patient encouraged to continue walking regularly with added strength training 2-3 times weekly. Recommending increased water intake, goal 60 ounces/day. Plan to continue compounded semaglutide 0.5 mg SC weekly and follow-up in 1 month. 04/11/2024: Weight: 225, BMI: 45.4. Reviewed SECA/goals for implementing sustainable lifestyle changes. Patient is encouraged to increase physical activity, goal 8-10k steps/day. Also discussed the importance of strength training with proper safety/body mechanics for maintenance of muscle mass/bone health. Patient encouraged to drink 60-80oz water/day. Reviewed nutrition, recommending food diary x 1 week to ensure adequate caloric/protein intake. Goal of 80-100g protein/day. Reviewed risks, benefits, and side effects of weight management medications including phentermine, Topamax, Contrave, metformin, and GLP-1 agonist.Patient interested in GLP-1 agonist Zepbound. Denies personal/family history of medullary thyroid cancer/MEN syndrome. Rx for Zepbound 2.5 mg SC weekly sent to pharmacy. Reviewed proper use, side effects, and expectations for PA process/insurance coverage. If the medication is not covered, patient would like to initiate treatment with compounded semaglutide (as opposed to compounded tirzepatide due to cost difference). Will initiate treatment with compounded semaglutide in office today. 0.25 mg administered SC. Will transition to Zepbound should insurance cover this medication. All questions answered to the patient's satisfaction. Patient demonstrates understanding of diagnosis and treatments discussed. Follow-up in 4 weeks, sooner should any questions/concerns arise. Case discussed with collaborating physician Mami Wang who has reviewed the assessment/plan. Chart, medications, labs, and vital signs reviewed. Dictation completed with the use of [employer] voice recognition software, prone to medical misidentifications and grammatical errors. All errors are unintentional. Although the practitioner does try to identify and correct errors, some may be present. Please do not hesitate to contact the practitioner for clarification. Total time was 30 minutes spent with >50% on coordination of care and patient education. 04/11/2024 Acquired hypothyroidism (ICD-10 - E03.9) Dai is a 43-year-old female with a PMH prediabetes (A1c 5.7%), anxiety, hypothyroidism, overactive bladder that presents for weight management consult. Patient was reassured and welcomed to the practice. Discussed [facility] holistic and medical approach to weight loss with emphasis on lifestyle modification. Patient is educated that a healthy lifestyle aids in combating obesity as well as reducing the risk of developing obesity-related medical complications including but not limited to diabetes and cardiovascular disease. Detailed education provided about taking steps to initiate sustainable lifestyle changes including incorporating regular physical activity, making healthy diet choices, and prioritizing mental health. Information provided about literature including The Food Rules by Alfred Hagen and Eat Fat Get Lean by Dr Donato Ponce. Handouts including lifestyle checklist, protein content of food, low calorie snacks, and cholesterol information sheet provided. Diagnostic testing/ SECA scale offered. Discussed the importance of regular SECA scale measurements to ensure healthy weight loss. 04/11/2024: Weight: 225, BMI: 45.4. Reviewed SECA/goals for implementing sustainable lifestyle changes. Patient is encouraged to increase physical activity, goal 8-10k steps/day. Also discussed the importance of strength training with proper safety/body mechanics for maintenance of muscle mass/bone health. Patient encouraged to drink 60-80oz water/day. Reviewed nutrition, recommending food diary x 1 week to ensure adequate caloric/protein intake. Goal of 80-100g protein/day. Reviewed risks, benefits, and side effects of weight management medications including phentermine, Topamax, Contrave, metformin, and GLP-1 agonist.Patient interested in GLP-1 agonist Zepbound. Denies personal/family history of medullary thyroid cancer/MEN syndrome. Rx for Zepbound 2.5 mg SC weekly sent to pharmacy. Reviewed proper use, side effects, and expectations for PA process/insurance coverage. If the medication is not covered, patient would like to initiate treatment with compounded semaglutide (as opposed to compounded tirzepatide due to cost difference). Will initiate treatment with compounded semaglutide in office today. 0.25 mg administered SC. Will transition to Zepbound should insurance cover this medication. After consultation and careful review of medical history, this patient would benefit from Zepbound based off of the following criteria met: Patient is over the age of 17 with a BMI of 45. Additional comorbidities include prediabetes, hypothyroidism. Patient has trialed other methods of weight loss including improving diet and exercise without success. This medication is prescribed by or in consultation with a board-certified obesity and weight management physician (Dr. Amy Wang or Dr. Layne Wang). All questions answered to the patient's satisfaction. Patient demonstrates understanding of diagnosis and treatments discussed. Follow-up in 4 weeks, sooner should any questions/concerns arise. Case discussed with collaborating physician Mami Wang who has reviewed the assessment/plan. Chart, medications, labs, and vital signs reviewed. Dictation completed with the use of [employer] voice recognition software, prone to medical misidentifications and grammatical errors. All errors are unintentional. Although the practitioner does try to identify and correct errors, some may be present. Please do not hesitate to contact the practitioner for clarification. Total time was 60 minutes spent with >50% on coordination of care and patient education. 05/16/2024 Acquired hypothyroidism (ICD-10 - E03.9) Dai is a 43-year-old female with a PMH prediabetes (A1c 5.7%), anxiety, hypothyroidism, overactive bladder that presents for weight management follow-up. Reviewed [facility] holistic and medical approach to weight loss with emphasis on lifestyle modification. 05/16/24: Weight: 220 BMI: 44. Patient down 5 pounds. SECA reviewed, reveals maintenance of muscle mass. Waist circumference is down. Discussed importance of continued portion control and prioritization of nutrient rich/protein dense foods. Patient encouraged to continue walking regularly with added strength training 2-3 times weekly. Recommending increased water intake, goal 60 ounces/day. Plan to continue compounded semaglutide 0.5 mg SC weekly and follow-up in 1 month. 04/11/2024: Weight: 225, BMI: 45.4. Reviewed SECA/goals for implementing sustainable lifestyle changes. Patient is encouraged to increase physical activity, goal 8-10k steps/day. Also discussed the importance of strength training with proper safety/body mechanics for maintenance of muscle mass/bone health. Patient encouraged to drink 60-80oz water/day. Reviewed nutrition, recommending food diary x 1 week to ensure adequate caloric/protein intake. Goal of 80-100g protein/day. Reviewed risks, benefits, and side effects of weight management medications including phentermine, Topamax, Contrave, metformin, and GLP-1 agonist.Patient interested in GLP-1 agonist Zepbound. Denies personal/family history of medullary thyroid cancer/MEN syndrome. Rx for Zepbound 2.5 mg SC weekly sent to pharmacy. Reviewed proper use, side effects, and expectations for PA process/insurance coverage. If the medication is not covered, patient would like to initiate treatment with compounded semaglutide (as opposed to compounded tirzepatide due to cost difference). Will initiate treatment with compounded semaglutide in office today. 0.25 mg administered SC. Will transition to Zepbound should insurance cover this medication. All questions answered to the patient's satisfaction. Patient demonstrates understanding of diagnosis and treatments discussed. Follow-up in 4 weeks, sooner should any questions/concerns arise. Case discussed with collaborating physician Mami Wang who has reviewed the assessment/plan. Chart, medications, labs, and vital signs reviewed. Dictation completed with the use of [employer] voice recognition software, prone to medical misidentifications and grammatical errors. All errors are unintentional. Although the practitioner does try to identify and correct errors, some may be present. Please do not hesitate to contact the practitioner for clarification. Total time was 30 minutes spent with >50% on coordination of care and patient education. 07/25/2024 Acquired hypothyroidism (ICD-10 - E03.9) Dai is a 44-year-old female with a PMH prediabetes (A1c 5.7%), anxiety, hypothyroidism, overactive bladder that presents for weight management follow-up. Reviewed [facility] holistic and medical approach to weight loss with emphasis on lifestyle modification. 07/25/2024: Weight: 207.2, BMI: 41.8. (-9lbs) SECA reviewed, reveals fat loss with improvement in muscle mass. She is encouraged to continue to reintroduce bland foods as tolerated. Discussed importance of dietary fiber and adequate hydration. Patient will remain off of Zepbound with plan to reinitiate at 2.5 mg dose next Wednesday. Recommending heavy hydration the day of the injection and use of as needed famotidine with goal of improving symptoms of indigestion. She may continue to use as needed Zofran for nausea. 06/19/2024: Weight: 216, BMI: 43.7. (-4lbs) 05/16/24: Weight: 220 BMI: 44. (-5lbs) 04/11/2024: Weight: 225, BMI: 45.4. All questions answered to the patient's satisfaction. Patient demonstrates understanding of diagnosis and treatments discussed. Follow-up in 4 weeks, sooner should any questions/concerns arise. Case discussed with collaborating physician Mami Wang who has reviewed the assessment/plan. Chart, medications, labs, and vital signs reviewed. Dictation completed with the use of [employer] voice recognition software, prone to medical misidentifications and grammatical errors. All errors are unintentional. Although the practitioner does try to identify and correct errors, some may be present. Please do not hesitate to contact the practitioner for clarification. Total time was 30 minutes spent with >50% on coordination of care and patient education. 08/24/2024 Acquired hypothyroidism (ICD-10 - E03.9) Dai is a 44-year-old female with a H prediabetes (A1c 5.7%), anxiety, hypothyroidism, overactive bladder that presents for weight management follow-up. Reviewed [facility] holistic and medical approach to weight loss with emphasis on lifestyle modification. 08/24/2024: Weight: 207.5, BMI: 41.9. SECA reviewed. Patient has maintained weight loss successfully in the absence of GLP-1 medication. She is encouraged to continue maintaining lifestyle changes. Plan to reinitiate treatment with Zepbound 2.5 mg SC weekly upon returning home from vacation and follow-up in 4 to 6 weeks. 07/25/2024: Weight: 207.2, BMI: 41.8. (-9lbs) 06/19/2024: Weight: 216, BMI: 43.7. (-4lbs) 05/16/24: Weight: 220 BMI: 44. (-5lbs) 04/11/2024: Weight: 225, BMI: 45.4. All questions answered to the patient's satisfaction. Patient demonstrates understanding of diagnosis and treatments discussed. Follow-up in 4 weeks, sooner should any questions/concerns arise. Case discussed with collaborating physician Mami Wang who has reviewed the assessment/plan. Chart, medications, labs, and vital signs reviewed. Dictation completed with the use of [employer] voice recognition software, prone to medical misidentifications and grammatical errors. All errors are unintentional. Although the practitioner does try to identify and correct errors, some may be present. Please do not hesitate to contact the practitioner for clarification. Total time was 30 minutes spent with >50% on coordination of care and patient education. 06/19/2024 Acquired hypothyroidism (ICD-10 - E03.9) Dai is a 43-year-old female with a H prediabetes (A1c 5.7%), anxiety, hypothyroidism, overactive bladder that presents for weight management follow-up. Reviewed [facility] holistic and medical approach to weight loss with emphasis on lifestyle modification. 06/19/2024: Weight: 216, BMI: 43.7. Patient down 4 pounds.SECA reviewed, reveals loss of fat and muscle mass. Reviewed importance of prioritization of protein intake, goal 25-30 g/meal. She is encouraged to continue hydrating adequately, goal 60-80 ounces/day. Also recommending continued walking with added strength training 3 times weekly. Plan to increase dose of Zepbound to 5 mg SC weekly and follow-up in 6 weeks (patient will finish that she has have Zepbound 2.5 mg). 05/16/24: Weight: 220 BMI: 44. Patient down 5 pounds. SECA reviewed, reveals maintenance of muscle mass. Waist circumference is down. Discussed importance of continued portion control and prioritization of nutrient rich/protein dense foods. Patient encouraged to continue walking regularly with added strength training 2-3 times weekly. Recommending increased water intake, goal 60 ounces/day. Plan to continue compounded semaglutide 0.5 mg SC weekly and follow-up in 1 month. 04/11/2024: Weight: 225, BMI: 45.4. Reviewed SECA/goals for implementing sustainable lifestyle changes. Patient is encouraged to increase physical activity, goal 8-10k steps/day. Also discussed the importance of strength training with proper safety/body mechanics for maintenance of muscle mass/bone health. Patient encouraged to drink 60-80oz water/day. Reviewed nutrition, recommending food diary x 1 week to ensure adequate caloric/protein intake. Goal of 80-100g protein/day. Reviewed risks, benefits, and side effects of weight management medications including phentermine, Topamax, Contrave, metformin, and GLP-1 agonist.Patient interested in GLP-1 agonist Zepbound. Denies personal/family history of medullary thyroid cancer/MEN syndrome. Rx for Zepbound 2.5 mg SC weekly sent to pharmacy. Reviewed proper use, side effects, and expectations for PA process/insurance coverage. If the medication is not covered, patient would like to initiate treatment with compounded semaglutide (as opposed to compounded tirzepatide due to cost difference). Will initiate treatment with compounded semaglutide in office today. 0.25 mg administered SC. Will transition to Zepbound should insurance cover this medication. All questions answered to the patient's satisfaction. Patient demonstrates understanding of diagnosis and treatments discussed. Follow-up in 4 weeks, sooner should any questions/concerns arise. Case discussed with collaborating physician Mami Wang who has reviewed the assessment/plan. Chart, medications, labs, and vital signs reviewed. Dictation completed with the use of [employer] voice recognition software, prone to medical misidentifications and grammatical errors. All errors are unintentional. Although the practitioner does try to identify and correct errors, some may be present. Please do not hesitate to contact the practitioner for clarification. Total time was 30 minutes spent with >50% on coordination of care and patient education. 08/24/2024 Nutritional counseling (ICD-10 - Z71.3) Dai is a 44-year-old female with a PMH prediabetes (A1c 5.7%), anxiety, hypothyroidism, overactive bladder that presents for weight management follow-up. Reviewed [facility] holistic and medical approach to weight loss with emphasis on lifestyle modification. 08/24/2024: Weight: 207.5, BMI: 41.9. SECA reviewed. Patient has maintained weight loss successfully in the absence of GLP-1 medication. She is encouraged to continue maintaining lifestyle changes. Plan to reinitiate treatment with Zepbound 2.5 mg SC weekly upon returning home from vacation and follow-up in 4 to 6 weeks. 07/25/2024: Weight: 207.2, BMI: 41.8. (-9lbs) 06/19/2024: Weight: 216, BMI: 43.7. (-4lbs) 05/16/24: Weight: 220 BMI: 44. (-5lbs) 04/11/2024: Weight: 225, BMI: 45.4. All questions answered to the patient's satisfaction. Patient demonstrates understanding of diagnosis and treatments discussed. Follow-up in 4 weeks, sooner should any questions/concerns arise. Case discussed with collaborating physician Mami Wang who has reviewed the assessment/plan. Chart, medications, labs, and vital signs reviewed. Dictation completed with the use of [employer] voice recognition software, prone to medical misidentifications and grammatical errors. All errors are unintentional. Although the practitioner does try to identify and correct errors, some may be present. Please do not hesitate to contact the practitioner for clarification. Total time was 30 minutes spent with >50% on coordination of care and patient education. 06/19/2024 Nutritional counseling (ICD-10 - Z71.3) Dai is a 43-year-old female with a PMH prediabetes (A1c 5.7%), anxiety, hypothyroidism, overactive bladder that presents for weight management follow-up. Reviewed [facility] holistic and medical approach to weight loss with emphasis on lifestyle modification. 06/19/2024: Weight: 216, BMI: 43.7. Patient down 4 pounds.SECA reviewed, reveals loss of fat and muscle mass. Reviewed importance of prioritization of protein intake, goal 25-30 g/meal. She is encouraged to continue hydrating adequately, goal 60-80 ounces/day. Also recommending continued walking with added strength training 3 times weekly. Plan to increase dose of Zepbound to 5 mg SC weekly and follow-up in 6 weeks (patient will finish that she has have Zepbound 2.5 mg). 05/16/24: Weight: 220 BMI: 44. Patient down 5 pounds. SECA reviewed, reveals maintenance of muscle mass. Waist circumference is down. Discussed importance of continued portion control and prioritization of nutrient rich/protein dense foods. Patient encouraged to continue walking regularly with added strength training 2-3 times weekly. Recommending increased water intake, goal 60 ounces/day. Plan to continue compounded semaglutide 0.5 mg SC weekly and follow-up in 1 month. 04/11/2024: Weight: 225, BMI: 45.4. Reviewed SECA/goals for implementing sustainable lifestyle changes. Patient is encouraged to increase physical activity, goal 8-10k steps/day. Also discussed the importance of strength training with proper safety/body mechanics for maintenance of muscle mass/bone health. Patient encouraged to drink 60-80oz water/day. Reviewed nutrition, recommending food diary x 1 week to ensure adequate caloric/protein intake. Goal of 80-100g protein/day. Reviewed risks, benefits, and side effects of weight management medications including phentermine, Topamax, Contrave, metformin, and GLP-1 agonist.Patient interested in GLP-1 agonist Zepbound. Denies personal/family history of medullary thyroid cancer/MEN syndrome. Rx for Zepbound 2.5 mg SC weekly sent to pharmacy. Reviewed proper use, side effects, and expectations for PA process/insurance coverage. If the medication is not covered, patient would like to initiate treatment with compounded semaglutide (as opposed to compounded tirzepatide due to cost difference). Will initiate treatment with compounded semaglutide in office today. 0.25 mg administered SC. Will transition to Zepbound should insurance cover this medication. All questions answered to the patient's satisfaction. Patient demonstrates understanding of diagnosis and treatments discussed. Follow-up in 4 weeks, sooner should any questions/concerns arise. Case discussed with collaborating physician Mami Wang who has reviewed the assessment/plan. Chart, medications, labs, and vital signs reviewed. Dictation completed with the use of [employer] voice recognition software, prone to medical misidentifications and grammatical errors. All errors are unintentional. Although the practitioner does try to identify and correct errors, some may be present. Please do not hesitate to contact the practitioner for clarification. Total time was 30 minutes spent with >50% on coordination of care and patient education. 07/25/2024 Indigestion (ICD-10 - K30) Dai is a 44-year-old female with a PMH prediabetes (A1c 5.7%), anxiety, hypothyroidism, overactive bladder that presents for weight management follow-up. Reviewed [facility] holistic and medical approach to weight loss with emphasis on lifestyle modification. 07/25/2024: Weight: 207.2, BMI: 41.8. (-9lbs) SECA reviewed, reveals fat loss with improvement in muscle mass. She is encouraged to continue to reintroduce bland foods as tolerated. Discussed importance of dietary fiber and adequate hydration. Patient will remain off of Zepbound with plan to reinitiate at 2.5 mg dose next Wednesday. Recommending heavy hydration the day of the injection and use of as needed famotidine with goal of improving symptoms of indigestion. She may continue to use as needed Zofran for nausea. 06/19/2024: Weight: 216, BMI: 43.7. (-4lbs) 05/16/24: Weight: 220 BMI: 44. (-5lbs) 04/11/2024: Weight: 225, BMI: 45.4. All questions answered to the patient's satisfaction. Patient demonstrates understanding of diagnosis and treatments discussed. Follow-up in 4 weeks, sooner should any questions/concerns arise. Case discussed with collaborating physician Mami Wang who has reviewed the assessment/plan. Chart, medications, labs, and vital signs reviewed. Dictation completed with the use of [employer] voice recognition software, prone to medical misidentifications and grammatical errors. All errors are unintentional. Although the practitioner does try to identify and correct errors, some may be present. Please do not hesitate to contact the practitioner for clarification. Total time was 30 minutes spent with >50% on coordination of care and patient education. 05/16/2024 Nutritional counseling (ICD-10 - Z71.3) Dai is a 43-year-old female with a PMH prediabetes (A1c 5.7%), anxiety, hypothyroidism, overactive bladder that presents for weight management follow-up. Reviewed [facility] holistic and medical approach to weight loss with emphasis on lifestyle modification. 05/16/24: Weight: 220 BMI: 44. Patient down 5 pounds. SECA reviewed, reveals maintenance of muscle mass. Waist circumference is down. Discussed importance of continued portion control and prioritization of nutrient rich/protein dense foods. Patient encouraged to continue walking regularly with added strength training 2-3 times weekly. Recommending increased water intake, goal 60 ounces/day. Plan to continue compounded semaglutide 0.5 mg SC weekly and follow-up in 1 month. 04/11/2024: Weight: 225, BMI: 45.4. Reviewed SECA/goals for implementing sustainable lifestyle changes. Patient is encouraged to increase physical activity, goal 8-10k steps/day. Also discussed the importance of strength training with proper safety/body mechanics for maintenance of muscle mass/bone health. Patient encouraged to drink 60-80oz water/day. Reviewed nutrition, recommending food diary x 1 week to ensure adequate caloric/protein intake. Goal of 80-100g protein/day. Reviewed risks, benefits, and side effects of weight management medications including phentermine, Topamax, Contrave, metformin, and GLP-1 agonist.Patient interested in GLP-1 agonist Zepbound. Denies personal/family history of medullary thyroid cancer/MEN syndrome. Rx for Zepbound 2.5 mg SC weekly sent to pharmacy. Reviewed proper use, side effects, and expectations for PA process/insurance coverage. If the medication is not covered, patient would like to initiate treatment with compounded semaglutide (as opposed to compounded tirzepatide due to cost difference). Will initiate treatment with compounded semaglutide in office today. 0.25 mg administered SC. Will transition to Zepbound should insurance cover this medication. All questions answered to the patient's satisfaction. Patient demonstrates understanding of diagnosis and treatments discussed. Follow-up in 4 weeks, sooner should any questions/concerns arise. Case discussed with collaborating physician Mami Wang who has reviewed the assessment/plan. Chart, medications, labs, and vital signs reviewed. Dictation completed with the use of [employer] voice recognition software, prone to medical misidentifications and grammatical errors. All errors are unintentional. Although the practitioner does try to identify and correct errors, some may be present. Please do not hesitate to contact the practitioner for clarification. Total time was 30 minutes spent with >50% on coordination of care and patient education. 07/25/2024 Nutritional counseling (ICD-10 - Z71.3) Dai is a 44-year-old female with a PMH prediabetes (A1c 5.7%), anxiety, hypothyroidism, overactive bladder that presents for weight management follow-up. Reviewed [facility] holistic and medical approach to weight loss with emphasis on lifestyle modification. 07/25/2024: Weight: 207.2, BMI: 41.8. (-9lbs) SECA reviewed, reveals fat loss with improvement in muscle mass. She is encouraged to continue to reintroduce bland foods as tolerated. Discussed importance of dietary fiber and adequate hydration. Patient will remain off of Zepbound with plan to reinitiate at 2.5 mg dose next Wednesday. Recommending heavy hydration the day of the injection and use of as needed famotidine with goal of improving symptoms of indigestion. She may continue to use as needed Zofran for nausea. 06/19/2024: Weight: 216, BMI: 43.7. (-4lbs) 05/16/24: Weight: 220 BMI: 44. (-5lbs) 04/11/2024: Weight: 225, BMI: 45.4. All questions answered to the patient's satisfaction. Patient demonstrates understanding of diagnosis and treatments discussed. Follow-up in 4 weeks, sooner should any questions/concerns arise. Case discussed with collaborating physician Mami Wang who has reviewed the assessment/plan. Chart, medications, labs, and vital signs reviewed. Dictation completed with the use of [employer] voice recognition software, prone to medical misidentifications and grammatical errors. All errors are unintentional. Although the practitioner does try to identify and correct errors, some may be present. Please do not hesitate to contact the practitioner for clarification. Total time was 30 minutes spent with >50% on coordination of care and patient education. 08/24/2024 Encounter for examination of blood pressure without abnormal findings (ICD-10 - Z01.30) Dai is a 44-year-old female with a PMH prediabetes (A1c 5.7%), anxiety, hypothyroidism, overactive bladder that presents for weight management follow-up. Reviewed [facility] holistic and medical approach to weight loss with emphasis on lifestyle modification. 08/24/2024: Weight: 207.5, BMI: 41.9. SECA reviewed. Patient has maintained weight loss successfully in the absence of GLP-1 medication. She is encouraged to continue maintaining lifestyle changes. Plan to reinitiate treatment with Zepbound 2.5 mg SC weekly upon returning home from vacation and follow-up in 4 to 6 weeks. 07/25/2024: Weight: 207.2, BMI: 41.8. (-9lbs) 06/19/2024: Weight: 216, BMI: 43.7. (-4lbs) 05/16/24: Weight: 220 BMI: 44. (-5lbs) 04/11/2024: Weight: 225, BMI: 45.4. All questions answered to the patient's satisfaction. Patient demonstrates understanding of diagnosis and treatments discussed. Follow-up in 4 weeks, sooner should any questions/concerns arise. Case discussed with collaborating physician Mami Wang who has reviewed the assessment/plan. Chart, medications, labs, and vital signs reviewed. Dictation completed with the use of [employer] voice recognition software, prone to medical misidentifications and grammatical errors. All errors are unintentional. Although the practitioner does try to identify and correct errors, some may be present. Please do not hesitate to contact the practitioner for clarification. Total time was 30 minutes spent with >50% on coordination of care and patient education. 06/19/2024 Encounter for examination of blood pressure without abnormal findings (ICD-10 - Z01.30) Dai is a 43-year-old female with a H prediabetes (A1c 5.7%), anxiety, hypothyroidism, overactive bladder that presents for weight management follow-up. Reviewed [facility] holistic and medical approach to weight loss with emphasis on lifestyle modification. 06/19/2024: Weight: 216, BMI: 43.7. Patient down 4 pounds.SECA reviewed, reveals loss of fat and muscle mass. Reviewed importance of prioritization of protein intake, goal 25-30 g/meal. She is encouraged to continue hydrating adequately, goal 60-80 ounces/day. Also recommending continued walking with added strength training 3 times weekly. Plan to increase dose of Zepbound to 5 mg SC weekly and follow-up in 6 weeks (patient will finish that she has have Zepbound 2.5 mg). 05/16/24: Weight: 220 BMI: 44. Patient down 5 pounds. SECA reviewed, reveals maintenance of muscle mass. Waist circumference is down. Discussed importance of continued portion control and prioritization of nutrient rich/protein dense foods. Patient encouraged to continue walking regularly with added strength training 2-3 times weekly. Recommending increased water intake, goal 60 ounces/day. Plan to continue compounded semaglutide 0.5 mg SC weekly and follow-up in 1 month. 04/11/2024: Weight: 225, BMI: 45.4. Reviewed SECA/goals for implementing sustainable lifestyle changes. Patient is encouraged to increase physical activity, goal 8-10k steps/day. Also discussed the importance of strength training with proper safety/body mechanics for maintenance of muscle mass/bone health. Patient encouraged to drink 60-80oz water/day. Reviewed nutrition, recommending food diary x 1 week to ensure adequate caloric/protein intake. Goal of 80-100g protein/day. Reviewed risks, benefits, and side effects of weight management medications including phentermine, Topamax, Contrave, metformin, and GLP-1 agonist.Patient interested in GLP-1 agonist Zepbound. Denies personal/family history of medullary thyroid cancer/MEN syndrome. Rx for Zepbound 2.5 mg SC weekly sent to pharmacy. Reviewed proper use, side effects, and expectations for PA process/insurance coverage. If the medication is not covered, patient would like to initiate treatment with compounded semaglutide (as opposed to compounded tirzepatide due to cost difference). Will initiate treatment with compounded semaglutide in office today. 0.25 mg administered SC. Will transition to Zepbound should insurance cover this medication. All questions answered to the patient's satisfaction. Patient demonstrates understanding of diagnosis and treatments discussed. Follow-up in 4 weeks, sooner should any questions/concerns arise. Case discussed with collaborating physician Mami Wang who has reviewed the assessment/plan. Chart, medications, labs, and vital signs reviewed. Dictation completed with the use of ScaleIO voice recognition software, prone to medical misidentifications and grammatical errors. All errors are unintentional. Although the practitioner does try to identify and correct errors, some may be present. Please do not hesitate to contact the practitioner for clarification. Total time was 30 minutes spent with >50% on coordination of care and patient education. 07/25/2024 Encounter for examination of blood pressure without abnormal findings (ICD-10 - Z01.30) Dai is a 44-year-old female with a PMH prediabetes (A1c 5.7%), anxiety, hypothyroidism, overactive bladder that presents for weight management follow-up. Reviewed [facility] holistic and medical approach to weight loss with emphasis on lifestyle modification. 07/25/2024: Weight: 207.2, BMI: 41.8. (-9lbs) SECA reviewed, reveals fat loss with improvement in muscle mass. She is encouraged to continue to reintroduce bland foods as tolerated. Discussed importance of dietary fiber and adequate hydration. Patient will remain off of Zepbound with plan to reinitiate at 2.5 mg dose next Wednesday. Recommending heavy hydration the day of the injection and use of as needed famotidine with goal of improving symptoms of indigestion. She may continue to use as needed Zofran for nausea. 06/19/2024: Weight: 216, BMI: 43.7. (-4lbs) 05/16/24: Weight: 220 BMI: 44. (-5lbs) 04/11/2024: Weight: 225, BMI: 45.4. All questions answered to the patient's satisfaction. Patient demonstrates understanding of diagnosis and treatments discussed. Follow-up in 4 weeks, sooner should any questions/concerns arise. Case discussed with collaborating physician Mami Wang who has reviewed the assessment/plan. Chart, medications, labs, and vital signs reviewed. Dictation completed with the use of ScaleIO voice recognition software, prone to medical misidentifications and grammatical errors. All errors are unintentional. Although the practitioner does try to identify and correct errors, some may be present. Please do not hesitate to contact the practitioner for clarification. Total time was 30 minutes spent with >50% on coordination of care and patient education. 06/05/2024 aDi is a 43-year-old female with a PMH prediabetes (A1c 5.7%), anxiety, hypothyroidism, overactive bladder that presents for weight management follow-up. Reviewed [facility] holistic and medical approach to weight loss with emphasis on lifestyle modification. 05/16/24: Weight: 220 BMI: 44. Patient down 5 pounds. SECA reviewed, reveals maintenance of muscle mass. Waist circumference is down. Discussed importance of continued portion control and prioritization of nutrient rich/protein dense foods. Patient encouraged to continue walking regularly with added strength training 2-3 times weekly. Recommending increased water intake, goal 60 ounces/day. Plan to continue compounded semaglutide 0.5 mg SC weekly and follow-up in 1 month. 04/11/2024: Weight: 225, BMI: 45.4. Reviewed SECA/goals for implementing sustainable lifestyle changes. Patient is encouraged to increase physical activity, goal 8-10k steps/day. Also discussed the importance of strength training with proper safety/body mechanics for maintenance of muscle mass/bone health. Patient encouraged to drink 60-80oz water/day. Reviewed nutrition, recommending food diary x 1 week to ensure adequate caloric/protein intake. Goal of 80-100g protein/day. Reviewed risks, benefits, and side effects of weight management medications including phentermine, Topamax, Contrave, metformin, and GLP-1 agonist.Patient interested in GLP-1 agonist Zepbound. Denies personal/family history of medullary thyroid cancer/MEN syndrome. Rx for Zepbound 2.5 mg SC weekly sent to pharmacy. Reviewed proper use, side effects, and expectations for PA process/insurance coverage. If the medication is not covered, patient would like to initiate treatment with compounded semaglutide (as opposed to compounded tirzepatide due to cost difference). Will initiate treatment with compounded semaglutide in office today. 0.25 mg administered SC. Will transition to Zepbound should insurance cover this medication. All questions answered to the patient's satisfaction. Patient demonstrates understanding of diagnosis and treatments discussed. Follow-up in 4 weeks, sooner should any questions/concerns arise. Case discussed with collaborating physician Mami Wang who has reviewed the assessment/plan. Chart, medications, labs, and vital signs reviewed. Dictation completed with the use of ScaleIO voice recognition software, prone to medical misidentifications and grammatical errors. All errors are unintentional. Although the practitioner does try to identify and correct errors, some may be present. Please do not hesitate to contact the practitioner for clarification. Total time was 30 minutes spent with >50% on coordination of care and patient education. Plan Of Treatment No Information Insurance Providers Payer Name Payer Address Payer Phone Subscriber Number Group Number Insured Name Patient Relationship to Insured Coverage Start Date Coverage End Date [facility] [address] [place] [address] [phone] [id number] DAI LINDSEY Self - patient is the insured Medications Administered Medication Instructions Date of Administration Dosage Notes MICC B12 INJECTION 05/01/2024 1 mL MICC B12 INJECTION 05/08/2024 1 mL MICC B12 INJECTION 05/16/2024 1 mL MICC B12 INJECTION 05/23/2024 1.0 mL MICC B12 INJECTION 05/29/2024 MICC B12 INJECTION 06/08/2024 MICC B12 INJECTION 06/19/2024 1 mL MICC B12 INJECTION 08/24/2024 Semaglutide 04/11/2024 .25 mg Semaglutide 04/19/2024 .25 mg Semaglutide 05/01/2024 0.25 mg Semaglutide 05/08/2024 0.5 mg Semaglutide 05/16/2024 .5 mg Semaglutide 05/23/2024 0.5 mg L tricep SQ Semaglutide 05/29/2024 0.5 Semaglutide 06/08/2024 1 mg Medical (General) History Surgical History Surgery Date(Month/Year) 2009
--- OUTSIDE RECORDS SUMMARY | 2024-10-17 17:31 | XMS_ITS | Clinical Summary ---
Author Organization [address] Address [address] [place] [address] Phone Care Team Providers Care Bung Remover Name Role Phone Sakshi Miller NP Primary Care Provider [phone] Allergies Active Allergy Reactions Criticality Noted Date Comments Amoxicillin Rash 07/31/2024 Doxycycline Unknown 08/07/2024 NOTED IN CHART BUT PT NOT AWARE Penicillins Rash 07/31/2024 Sulfa (Sulfonamide Antibiotics) Rash 07/31/2024 Medications tamsulosin (FLOMAX) 0.4 mg 24 hr capsule Take 1 capsule (0.4 mg total) by mouth 1 (one) time each day. Capsules should be taken 30 minutes following the same meal each day. Active Zepbound 5 mg/0.5 mL injection Active buprenorphine-n aloxone (SUBOXONE) 8-[address] tablet [address] 1 tablet under the tongue. After the medication is completely dissolved, take a large sip of water, swish it around teeth and gums, and swallow. Wait at least 1 hour before brushing teeth to avoid damage to your teeth. Active levothyroxine (SYNTHROID, LEVOTHROID) 25 mcg tablet Take by mouth 1 (one) time each day before breakfast. Active Encounters Date Type Department Care Team Description 08/07/2024 9:13 AM EDT Anesthesia Event [facility] OR [address] [place] [phone] Bridgette Catherine MD 08/07/2024 9:00 AM EDT - 08/07/2024 10:30 AM EDT Surgery [facility] OR [address] [place] [phone] Addis Tejada MD CYSTOSCOPY, BILATERA URETEROSCOPY, LASER LITHOTRIPSY,STENT BILAT [38891 (CPT )] 08/07/2024 7:33 AM EDT - 08/07/2024 12:10 PM EDT Hospital Encounter [facility] Main OR [address] [place] [phone] Addis Tejada MD Calculus of kidney Discharge Disposition: Home or Self Care 08/07/2024 7:15 AM EDT - 08/07/2024 11:59 PM EDT Hospital Encounter [facility] Xray [address] [place] [phone] Pain Discharge Disposition: Home or Self Care from Last 3 Months Surgical History Surgery Date Site/Laterality Comments SECTION, LOW TRANSVERSE Medical History Medical History Date Comments Disease of thyroid gland Kidney stones Asthma A CHILD Anxiety Arthritis Social History Tobacco Use Types Packs/Day Years Used Date Smoking Tobacco: Every Day Cigarettes Started: 1999 Tobacco Cessation:Ready to Q uit: Not Asked; Counseling Given: Not Answered Alcohol Use Standard Drinks/Week Comments Not Currently 0 (1 standard drink = 0.6 oz pur e alcohol) Interpersonal Safety Answer Date Record ed Physical Abuse 08/07/2024 Verbal Abuse 08/07/2024 Comments No Sex and Gender Information Value Date Recorded Sex Assigned at Not on file Legal Sex Female 1:24 PM EDT Gender Identity Not on file Sexual Orientation Not on file Obstetrics History Last Filed Vital Signs Vital Sign Reading Time Taken Comments Blood Pressure 136/80 08/07/2024 11:34 AM EDT Pulse 71 08/07/2024 11:34 AM EDT Temperature 36.4 C (97.5 F) 08/07/2024 11:34 AM EDT Respiratory Rate 18 08/07/2024 11:34 AM EDT Oxygen Saturation 97% 08/07/2024 11:34 AM EDT Inhaled Oxygen Concentration - - Weight 93.9 kg (207 lb) 08/07/2024 7:54 AM EDT Height 152.4 cm (5') 08/07/2024 7:54 AM EDT Body Mass Index 40.43 08/07/2024 7:54 AM EDT Plan of Treatment Health Maintenance Due Date Last Done Comments Breast Cancer Screening 1979 Hepatitis A Vaccines (1 of 2 - Risk 2-dose series) 05/01/1998 Hepatitis B Vaccines (1 of 3 - 19+ 3-dose series) 05/01/1998 Cervical Cancer Screening: Pap Smear 05/01/2000 Pneumococcal Vaccine: Pediatrics (0 to 5 Years) and At-Risk Patients (6 to 49 Years) (2 of 2 - PCV) 10/14/2015 10/13/2014 Depression Screening 02/09/2024 Cholesterol Screening (Lipid Panel) 06/21/2024 Colorectal Cancer Screening: Colonoscopy 06/21/2024 HIV Screening 06/21/2024 Hepatitis C Screening 06/21/2024 Social Influencers of Health Screening 06/21/2024 COVID-19 Vaccine (3 - 2024- season) 2024 06/06/2020, 05/09/2020 Influenza Vaccine (#1) 2024 , 10/19/2022, 12/16/2017, Additional history exists DTaP,Tdap,and Td Vaccines (3 - Td or Tdap) 08/14/2030 08/14/2020, 08/21/2009 HIB Vaccines Aged Out No longer eligi ble based on patient's age to complete this topic HPV Vaccines Aged Out No longer eligi ble based on patient's age to complete this topic IPV Vaccines Aged Out No longer eligi ble based on patient's age to complete this topic MMR Vaccines Aged Out No longer eligi ble based on patient's age to complete this topic Meningococcal ACWY Vaccine Aged Out N o longer eligible based on patient's age to complete this topic Meningococcal B Vaccine Aged Out No l onger eligible based on patient's age to complete this topic RSV Immunization Patients Under 20 months Aged Out No longer eligible based on patient's age to complete this topic Varicella Vaccines Aged Out No longer eligible based on patient's age to complete this topic Medical Devices Implanted Type Area Utility Sales Representative Device Identifier Shelf Expiration Date Model / Serial / Lot Stent Uret [id number] Contr Percuflex Hydroplus - Sna - [id number] Implanted:Qty: 1 on 08/07/2024 by Addis Tejada MD at [facility] Stents Left: Ureter [employer] [id number] 04/10/2027 [id number] 60 / NA / [id number] Stent Uret [id number] Contr Percuflex Hydroplus - Sna - [id number] Implanted:Qty: 1 on 08/07/2024 by Addis Tejada MD at [facility] Stents Right: Ureter [employer] [id number] 04/10/2027 [id number] 60 / NA / [id number] Procedures Procedure Name Priority Date/Time Associated Diagnosis Comments XR UROGRAM RETROGRADE Routine 08/07/2024 10:36 AM EDT Pain STONE ANALYSIS STAT 08/07/2024 10:28 AM EDT Calculus of kidney TH AN LMA(NO CHARGE) Routine 08/07/2024 9:23 AM EDT WA CYSTO W URETEROSCOPY/PYELOS COPY W LITHOTRIPSY INCL INDWELLING URTRL STNT 08/07/2024 9:13 AM EDT Calculus of kidney Case Notes C-ARM, HOLMIUM UMS Special Needs TIME CHANGE PER DEIDRE VIA PHONE AC 07/31 POC PREGANCY, URINE SCREENING Routine 08/07/2024 7:54 AM EDT from Last 3 Months Results * XR Urogram Retrograde (08/07/2024 10:36 AM EDT) Anatomical Region Laterality Modality Body Radio Fluoroscop y 08/07/2024 10:4 3 AM EDT Narrative 08/07/2024 10:43 AM EDT Fluoroscopic spot radiographs obtained during a bilateral endourologic procedure are submitted. No radiologist consultation was requested or provided during this procedure and there is no radiologist professional charge. This report is generated for documentation purposes only. The dose-area product for this procedure was 5.7212 Gy*cm2. PQRI CPT II G9500 -------- FINAL REPORT -------- Dictated By: Jose A Morales Dictated Date: 08/07/2024 10:43 ET Assigned Physician: Jose A Morales Reviewed and Electronically Signed By: Jose A Morales Signed Date: 08/07/2024 10:43 ET Workstation ID: [id number] Transcribed By: Self Edit Transcribed Date: 08/07/2024 10:43 ET Procedure Note Jose A Morales MD - 08/07/2024 Fluoroscopic spot radiographs obtained during a bilateral endourologicprocedure are submitted. No radiologist consultation was requested orprovided during this procedure and there is no radiologist professionalcharge. This report is generated for documentation purposes only. The dose-area product for this procedure was 5.7212 Gy*cm2. PQRI CPT II G9500 -------- FINAL REPORT -------- Dictated By: Jose A Morales Dictated Date: 08/07/2024 10:43 ET Assigned Physician: Jose A Morales Reviewed and Electronically Signed By: Jose A Morales Signed Date: 08/07/2024 10:43 ET Workstation ID: [id number] Transcribed By: Self Edit Transcribed Date: 08/07/2024 10:43 ET Addis Tejada MD IMG FLUOROSCOPY PROCEDUR ES Final Result * Stone analysis (08/07/2024 10:28 AM EDT) Component(s) See below 08/10/2024 6:31 PM EDT [facility] Comment: 3% Calcium oxalate monohydrate (Whewellite) 10% Carbonate apatite (Dahllite) 87% Ammonium-magnesium phosphate hexahydrate (Struvite) Stone Weight 0.0946 g 08/10/2024 6:31 PM EDT [facility] Comment: This test was developed and its performance characteristics determined by [facility] in a manner consistent with CLIA requirements. This test has not been cleared or approved by the U.S. Food and Drug Administration. Test performed at [facility], [address] , [place] [address] Magdalena Brown MD, PhD - Publication Director Calculus Left kidney structure / Unknown 08/07/2024 10:28 AM EDT 08/07/2024 11:59 AM EDT Result [facility] Addis Tejada MD LAB BODY FLUIDS AND STOO LS ORDERABLES Final Result [facility] [address] [place] [address] * TH AN LMA(NO CHARGE) (08/07/2024 9:23 AM EDT) Narrative Bert Dang CRNA - 08/07/2024 9:23 AM EDT Bert Dang CRNA 08/07/2024 9:26 AM General Information and Staff Patient location during procedure: OR Performed by: Bert Dang CRNA Authorized by: Bridgette Catherine MD Intubation Airway not difficult Urgency: elective Final Airway Details Number of attempts at approach: 1 Ventilation between attempts: none Number of other approaches attempted: 0 LMA Size: 4 LMA Type: Classic LMA Seal Pressure: Final airway type: LMA Indications and Patient Condition Indications for airway management: anesthesia Spontaneous ventilation: present Sedation level: Yes Preoxygenated: yes Soft Tissue Damage: Yes Dentition Unchanged: Yes Patient position: neutral Mask difficulty assessment: 0 - not attempted Start Time: 08/07/2024 9:18 AMStop Time: 08/07/2024 9:18 AM Result [facility] Bridgette Catherine MD ANESTHESIA ORDERABLES Fin al Result * POC , urine NO CHARGE screening manually resulted (08/07/2024 7:54 AM EDT) HCG, Ur POC Negative Negative POC hCG Int QC Pass? Yes Yes Urine Urine specimen obtained by clean catch procedure / Unknown 08/07/2024 7:54 AM EDT Result [facility] Bridgette Catherine MD POINT OF CARE TEST ENTER/ EDIT ORDERABLES Final Result from Last 3 Months Insurance [facility] Care Teams Bung Remover Relationship Specialty Start Date End Date Sakshi Miller NP [address] [place] [phone] PCP - General Family Medicine 06/21/24
== END 2024-10-17 16:24 | disposition home or self-care (01) ==
LOC: HO.HUSH 15:11
PROVIDERS: PCP Nurse Practitioner; Visit Provider Urology
DX: N20.0 Calculus of kidney (principal); Z13.9 Encounter for screening, unspecified
CPT/HCPCS: 99204

== ENCOUNTER → 2024-10-17 15:10 | Outpatient (BNVA) | payer BC, SELFPAY | PROVIDERS: PCP Nurse Practitioner; Visit Provider Urology | DX: N20.0 Calculus of kidney (principal) | CPT/HCPCS: 81003 ==

== ENCOUNTER 2025-01-16 16:20 | Outpatient (REF) | payer BC, SELFPAY ==
--- OUTSIDE RECORDS SUMMARY | 2024-05-01 05:00 | XMS_ITS ---
Author Organization [facility] Address [address] [place] [address] Care Team Providers Care Damage Adjuster Name Role Phone LEAH MENEZES Primary Care Provider ERIC Ross Unavailable [phone] MARIELENA WANG Unavailable [phone] REASON FOR VISIT patient is here for sema .25mg and micc. patient tolerated well Medications Medication SIG (Take, Route, Frequency, Duration) Notes Start Date End Date Status Levothyroxine Sodium 25 MCG Tablet Oral; Duration: 90 Days Acti ve Buprenorphine HCl-Naloxone HCl 8-2 MG Tablet Sublingual Sublingual; Duration: 28 Days Active Zepbound 2.5 MG/0.5ML Solution Auto-injector Inject 2.5mg Subcutaneous weekly; Duration: 30 days 04/11/2024 Active Escitalopram Oxalate 10 MG Tablet Oral; Duration: 30 Days Acti ve oxyBUTYnin Chloride ER 10 MG Tablet Extended Release 24 Hour Oral; Duration: 30 Days Acti ve Encounters Encounter Location Date Provider Diagnosis [facility] [address] [place] [address] 05/01/2024 MARIELENA WANG Plan Of Treatment No Information Medications Administered Medication Instructions Date of Administration Dosage Notes Semaglutide 05/01/2024 0.25 mg MICC B12 INJECTION 05/01/2024 1 mL Progress Notes * BRADLEY LINDSEYDOB:1980 (44 yo F)Acc No.[id number]:05/01/2024 Patient: BRADLEY BAIRD Provider: Milly Wang MD :1980 A ge:44 Y S ex:Female Date:05/01/2024 Address:[address] , [facility] Pcp:LEAH MENEZES Subjective: * Chief Complaints: * P atient is here for sema .25mg and micc. patient tolerated well * Medications: T akingZepbound 2.5 MG/0.5ML Solution Auto-injector Inject 2.5mg Subcutaneous weekly Buprenorphine HCl-Naloxone HCl 8-2 MG Tablet Sublingual Sublingual oxyBUTYnin Chloride ER 10 MG Tablet Extended Release 24 Hour Oral Escitalopram Oxalate 10 MG Tablet Oral Levothyroxine Sodium 25 MCG Tablet Oral Taking Zepbound 2.5 MG/0.5ML Solution Auto-injector Inject 2.5mg Subcutaneous weekly Taking Buprenorphine HCl-Naloxone HCl 8-2 MG Tablet Sublingual Sublingual Taking oxyBUTYnin Chloride ER 10 MG Tablet Extended Release 24 Hour Oral Taking Escitalopram Oxalate 10 MG Tablet Oral Taking Levothyroxine Sodium 25 MCG Tablet Oral Plan: * Therapeutic Injections: Semaglutide : 0.25 mg (Route: Subcutaneous) given by Celio Canchola on subcutaneus MICC B12 INJECTION : 1 mL (Route: Intramuscular) given by Celio Canchola on left arm intramuscular * Electronic signature of BLAINE WANG MD on 01/16/2025 at 10:54 PM EST Sign off status: Pending * Provider: Milly Wang MD Date: 0 05/01/2024 Generated for Lora anthony/Geraldine/Germania on: 1 03/19/2024 10:54 PM EST
--- OUTSIDE RECORDS SUMMARY | 2024-05-08 08:30 | XMS_ITS ---
Author Organization [facility] Address [address] [place] [address] Care Team Providers Care Sound Controller Name Role Phone LEAH MENEZES Primary Care Provider ERIC Ross Unavailable [phone] MARIELENA WANG Unavailable [phone] REASON FOR VISIT patient is here for sema 0.5mg and micc shot. patient signed consent and left the office in stable condition Encounters Encounter Location Date Provider Diagnosis [facility] [address] [place] [address] 05/08/2024 MARIELENA WANG Plan Of Treatment No Information Medications Administered Medication Instructions Date of Administration Dosage Notes Semaglutide 05/08/2024 0.5 mg MICC B12 INJECTION 05/08/2024 1 mL Progress Notes * BRADLEY LINDSEYDOB:1980 (44 yo F)Acc No.[id number]:05/08/2024 Patient: Tavo BRADLEY LOW Provider: Milly Wang MD :1980 A ge:44 Y S ex:Female Date:05/08/2024 [facility] Pcp:LEAH MENEZES Subjective: * Chief Complaints: * P atient is here for sema 0.5mg and micc shot. patient signed consent and left the office in stable condition Plan: * Therapeutic Injections: Semaglutide : 0.5 mg (Route: Subcutaneous) given by Celio Canchola on subcutaneus MICC B12 INJECTION : 1 mL (Route: Intramuscular) given by Celio Canchola on left arm intramuscular * Electronic signature of BLAINE WANG MD on 01/16/2025 at 10:55 PM EST Sign off status: Pending * Provider: Milly Wang MD Date: 0 05/08/2024 Generated for Lora anthony/Geraldine/Germania on: 1 03/19/2024 10:55 PM EST
--- OUTSIDE RECORDS SUMMARY | 2024-05-23 06:30 | XMS_ITS ---
Author Organization [facility] Address [address] [place] [address] Care Team Providers Care International Account Representative Name Role Phone LAEH MENEZES Primary Care Provider ERIC Ross Unavailable [phone] MARIELENA WANG Unavailable [phone] REASON FOR VISIT pt presents in office today for nurse visit, administered semaglutide 0.5mg into her L tricep SQ and MICC 1.0mL into her L deltoid per patient request and she tolerated both injection well Medications Medication SIG (Take, Route, Frequency, Duration) Notes Start Date End Date Status oxyBUTYnin Chloride ER 10 MG Tablet Extended Release 24 Hour Oral; Duration: 30 Days Acti ve Levothyroxine Sodium 25 MCG Tablet Oral; Duration: 90 Days Acti ve Escitalopram Oxalate 10 MG Tablet Oral; Duration: 30 Days Acti ve Buprenorphine HCl-Naloxone HCl 8-2 MG Tablet Sublingual Sublingual; Duration: 28 Days Active Encounters Encounter Location Date Provider Diagnosis [facility] [address] [place] [address] 05/23/2024 MARIELENA WANG Plan Of Treatment No Information Medications Administered Medication Instructions Date of Administration Dosage Notes Semaglutide 05/23/2024 0.5 mg L tricep SQ MICC B12 INJECTION 05/23/2024 1.0 mL Progress Notes * BRADLEY LINDSEYDOB:1980 (44 yo F)Acc No.[id number]:05/23/2024 Patient: Tavo BRADLEY LOW Provider: Milly Wang MD :1980 A ge:44 Y S ex:Female Date:05/23/2024 Address:[address], [facility] Pcp:LEAH MENEZES Subjective: * Chief Complaints: * tavo knight presents in office today for nurse visit, administered semaglutide 0.5mg into her L tricep SQ and MICC 1.0mL into her L deltoid per patient request and she tolerated both injection well * Medications: T akingBuprenorphine HCl-Naloxone HCl 8-2 MG Tablet Sublingual Sublingual oxyBUTYnin Chloride ER 10 MG Tablet Extended Release 24 Hour Oral Escitalopram Oxalate 10 MG Tablet Oral Levothyroxine Sodium 25 MCG Tablet Oral Taking Buprenorphine HCl-Naloxone HCl 8-2 MG Tablet Sublingual Sublingual Taking oxyBUTYnin Chloride ER 10 MG Tablet Extended Release 24 Hour Oral Taking Escitalopram Oxalate 10 MG Tablet Oral Taking Levothyroxine Sodium 25 MCG Tablet Oral Plan: * Therapeutic Injections: Semaglutide : 0.5 mg (Route: Subcutaneous) given by Meghan Menchaca on subcutaneus MICC B12 INJECTION : 1.0 mL (Route: Intramuscular) given by Meghan Menchaca on left deltoid * Electronic signature of BLAINE WANG MD on 01/16/2025 at 10:55 PM EST Sign off status: Pending * Provider: Milly Wang MD Date: 0 05/23/2024 Generated for Lora anthony/Geraldine/Germania on: 03/19/2024 10:55 PM EST
--- OUTSIDE RECORDS SUMMARY | 2024-05-29 06:00 | XMS_ITS ---
Author Organization [facility] Address [address] [place] [address] Care Team Providers Care Secondary School Special Ed Teacher Name Role Phone LEAH MENEZES Primary Care Provider ERIC Ross Unavailable [phone] MARIELENA WANG Unavailable [phone] REASON FOR VISIT pt here for sema 0.5mg and micc inj pt tolerated well consent form signed Medications Medication SIG (Take, Route, Frequency, Duration) Notes Start Date End Date Status Buprenorphine HCl-Naloxone HCl 8-2 MG Tablet Sublingual Sublingual; Duration: 28 Days Active oxyBUTYnin Chloride ER 10 MG Tablet Extended Release 24 Hour Oral; Duration: 30 Days Acti ve Levothyroxine Sodium 25 MCG Tablet Oral; Duration: 90 Days Acti ve Escitalopram Oxalate 10 MG Tablet Oral; Duration: 30 Days Acti ve Encounters Encounter Location Date Provider Diagnosis [facility] [address] [place] [address] 05/29/2024 MARIELENA WANG Plan Of Treatment No Information Medications Administered Medication Instructions Date of Administration Dosage Notes MICC B12 INJECTION 05/29/2024 Semaglutide 05/29/2024 0.5 Progress Notes * BRADLEY LINDSEYDOB:1980 (44 yo F)Acc No.[id number]:05/29/2024 Patient: Tavo DEVANTE BRADLEY Provider: Milly Wang MD :1980 A ge:44 Y S ex:Female Date:05/29/2024 Address: [address] , [facility] Pcp:LEAH MENEZES Subjective: * Chief Complaints: * P t here for sema 0.5mg and micc inj pt tolerated well consent form signed * Medications: T akingBuprenorphine HCl-Naloxone HCl 8-2 MG Tablet Sublingual Sublingual oxyBUTYnin Chloride ER 10 MG Tablet Extended Release 24 Hour Oral Escitalopram Oxalate 10 MG Tablet Oral Levothyroxine Sodium 25 MCG Tablet Oral Taking Buprenorphine HCl- Naloxone HCl 8-2 MG Tablet Sublingual Sublingual Taking oxyBUTYnin Chloride ER 10 MG Tablet Extended Release 24 Hour Oral Taking Escitalopram Oxalate 10 MG Tablet Oral Taking Levothyroxine Sodium 25 MCG Tablet Oral Plan: * Therapeutic Injections: MICC B12 INJECTION (Route: Intramuscular) given by Malgorzata Gonzalez on left deltoid Semaglutide : 0.5 (Route: Subcutaneous) given by Malgorzata Gonzalez on subcutaneus * Electronic signature of BLAINE WANG MD on 01/16/2025 at 10:56 PM EST Sign off status: Pending * Provider: Milly Wang MD Date: 0 05/29/2024 Generated for Lora anthony/Geraldine/Germania on: 1 03/19/2024 10:56 PM EST
--- OUTSIDE RECORDS SUMMARY | 2024-06-08 10:00 | XMS_ITS ---
Author Organization [facility] Address [address] [place] [address] Care Team Providers Care Building Mover Name Role Phone LEAH MENEZES Primary Care Provider ERIC Ross Unavailable [phone] JEANA STEIN Unavailable [phone] REASON FOR VISIT Pt here for SEMA 1 mg and MICC injection given both on left arm IM and sub q, pt tolerated well with no reaction. Medications Medication SIG (Take, Route, Frequency, Duration) Notes Start Date End Date Status oxyBUTYnin Chloride ER 10 MG Tablet Extended Release 24 Hour Oral; Duration: 30 Days Acti ve Buprenorphine HCl-Naloxone HCl 8-2 MG Tablet Sublingual Sublingual; Duration: 28 Days Active Levothyroxine Sodium 25 MCG Tablet Oral; Duration: 90 Days Acti ve Escitalopram Oxalate 10 MG Tablet Oral; Duration: 30 Days Acti ve Encounters Encounter Location Date Provider Diagnosis [facility] [address] [place] [address] 06/08/2024 JEANA STEIN Plan Of Treatment No Information Medications Administered Medication Instructions Date of Administration Dosage Notes Semaglutide 06/08/2024 1 mg MICC B12 INJECTION 06/08/2024 Progress Notes * BRADLEY LINDSEYDOB:1980 (44 yo F)Acc No.[id number]:06/08/2024 Patient: Tavo VargasBRADLEY PA Provider: Anson STEIN NP :1980 A ge:44 Y S ex:Female Date:06/08/2024 Address:[address] , [facility] Pcp:LEAH MENEZES Subjective: * Chief Complaints: * P t here for SEMA 1 mg and MICC injection given both on left arm IM and sub q, pt tolerated well with no reaction. * Medications: T akingBuprenorphine HCl-Naloxone HCl 8-2 [...] Oral Plan: * Therapeutic Injections: Semaglutide : 1 mg (Route: Subcutaneous) given by Jace Hernandez on left arm subcutaneous MICC B12 INJECTION (Route: Intramuscular) given by Jace Hernandez on left deltoid * Electronic signature of MARIAMA STEIN on 01/16/2025 at 10:53 PM EST Sign off status: Pending * Provider: Anson STEIN NP Date: 0 06/08/2024 Generated for Lora anthony/Geraldine/Germania on: 1 03/19/2024 10:53 PM EST
--- OUTSIDE RECORDS SUMMARY | 2024-10-05 09:30 | XMS_ITS ---
Author Organization [facility] [address] Address [address] [place] [address] Care Team Providers Care Bioinformatician Name Role Phone LEAH MENEZES Primary Care Provider ERIC Ross [facility] [phone] Encounters Encounter Location Date Provider Diagnosis [facility] [address] [address] 10/05/2024 ERIC COATS Plan Of Treatment No Information Progress Notes * BRADLEY LINDSEYDOB:1980 (44 yo F)Acc No.[id number]:10/05/2024 Patient: Tavo LUJANANAYA BRADLEY Provider: Travis COATS PA-C :1980 A ge:44 Y S ex:Female Date:10/05/2024 Address:[address] [place], [place] Pcp:LEAH MENEZES * Electronic signature of LEONOR COATS PA-C on 01/16/2025 at 10:55 PM EST Sign off status: Pending * Provider: Travis COATS PA-C Date: 0 10/05/2024 Generated for Javii ng/Geraldine/eTransmitting on: 1 03/19/2024 10:55 PM EST
--- NOTE | ~2025-01-16 | US_ITS ---
EXAMINATION: US RETROPERITONEAL LIMITED (RENAL ONLY) CLINICAL INFORMATION: Renal stones. COMPARISON: None available. TECHNIQUE: Real-time imaging of the kidneys. FINDINGS: RIGHT KIDNEY: 13 x 5 x 4.5 cm (SAG x AP x TRV). The kidney is normal in size, contour, and echogenicity. Renal cortical thickness is normal. No calculi or focal parenchymal lesions. No hydronephrosis. LEFT KIDNEY: 11 x 5.4 x 5.3 cm (SAG x AP x TRV). The kidney is normal in size, contour, and echogenicity. Renal cortical thickness is normal. No calculi or focal parenchymal lesions. No hydronephrosis. US/US renal BI IMPRESSION: Normal renal ultrasound. No stone seen. Electronically signed by: Brooke Dash MD 01/16/2025 04:53 PM EST
--- OUTSIDE RECORDS SUMMARY | 2025-01-16 22:54 | XMS_ITS | Clinical Summary ---
Author Organization [address] Address [address] [place] [phone] Phone Care Team Providers Care Claims Examiner Name Role Phone Sakshi Miller NP Primary Care Provider [phone] Allergies Active Allergy Reactions Criticality Noted Date [...] (one) time each day before breakfast. Active Surgical History Surgery Date Site/Laterality Comments SECTION, LOW TRANSVERSE Medical History Medical History Date Comments Disease of thyroid gland Kidney stones Asthma A CHILD Anxiety Arthritis Social History Tobacco Use Types Packs/Day Years Used Date Smoking Tobacco: Every Day Cigarettes 0.5 Started: 1999 Tobacco Cessation:Ready to Q uit: Not Asked; Counseling Given: Not Answered Alcohol Use Standard Drinks/Week Comments Not Currently 0 (1 standard drink = 0.6 oz pur e alcohol) Interpersonal Safety Answer Date Record ed Physical Abuse Unrecognized value 08/07/2024 Verbal Abuse Unrecognized value 08/07/2024 Comments No Sex and Gender Information Value Date Recorded Sex Assigned at Not on file Legal Sex Female 1:24 PM EDT Gender Identity Not on file Sexual Orientation Not on file Last Filed Vital Signs Vital Sign Reading [...] Last Done Comments Breast Cancer Screening 1979 Colorectal Cancer Screening: Colonoscopy 1979 Hepatitis A Vaccines (1 of 2 - Risk 2-dose series) 05/01/1998 Hepatitis B Vaccines (1 of 3 - 19+ 3-dose series) 05/01/1998 Cervical Cancer Screening: Pap Smear 05/01/2000 HPV Vaccines (1 - 3-dose SCDM series) 05/01/2006 Pneumococcal Vaccine: Pediatrics (0 to 5 Years) and At-Risk Patients (6 to 49 Years) (2 of 2 - PCV) 10/14/2015 10/13/2014 Depression Screening 02/09/2024 Cholesterol Screening (Lipid Panel) 06/21/2024 HIV Screening 06/21/2024 Hepatitis C Screening 06/21/2024 Social Influencers of Health Screening 06/21/2024 COVID-19 Vaccine ( - season) 2024 06/06/2020, 05/09/2020 Influenza Vaccine (#1) 2024 , 10/19/2022, 12/16/2017, Additional history exists DTaP,Tdap,and Td Vaccines (3 - Td or Tdap) 08/14/2030 08/14/2020, 08/21/2009 RSV Immunization Adult Patients (1 - 1-dose 75+ series) 05/01/2054 HIB Vaccines Aged Out No longer eligi [...] this topic Medical Devices Implanted Type Area X Ray Physician Device Identifier Shelf Expiration Date Model / Serial / Lot Stent Uret [id number] Contr Percuflex Hydroplus - Sna - [id number] Implanted:Qty: 1 on 08/07/2024 by Addis Tejada MD at [facility] Stents Left: Ureter [employer] [id number] 04/10/2027 [id number] 60 / NA / [id number] Stent Uret [id number] Contr Percuflex Hydroplus - Sna - [id number] Implanted:Qty: 1 on 08/07/2024 by Addis Tejada MD at [facility] Stents Right: Ureter [employer] [id number] 04/10/2027 [id number] 60 / NA / [id number] Insurance [facility] Care Teams Claims Examiner Relationship Specialty Start Date End Date Saksih Miller NP [address] [place] [address] PCP - General Family Medicine 06/21/24
--- OUTSIDE RECORDS SUMMARY | 2025-01-16 22:54 | XMS_ITS | Encounter Summary ---
Author Organization [facility] Address [address] [place] [address] Care Team Providers Care Traveling Auditor Name Role Phone Sakshi Miller TEAROOM HOST Primary Care Provider [phone] Encounter Details Date Type Department Care Team (Late st Contact Info) Description 06/21/2024 Lab Requisition [facility] - Main Lab [address] [facility] [place] [phone] Tahira Ruff NP [address] [facility] [place] [address] [place] [address] Calculus of kidney Social History Tobacco Use [...] developed and its performance characteristics determined by [facility] in a manner consistent with CLIA requirements. This test has not been cleared or approved by the U.S. Food and Drug Administration. Test performed at [facility], [address], [place] [address] Magdalena Brown MD, PhD - Lehr Loader Calculus 06/21/2024 06/21/2024 1:3 2 PM EDT Tahira Ruff NP LAB BODY FLUIDS AND STOOL S ORDERABLES Final Result [facility] [address] [place] [address] documented in this encounter Visit Diagnoses Diagnosis Calculus of kidney documented in this encounter Care Teams Traveling Auditor Relationship Specialty Start Date End Date Sakshi Miller NP [address] [place] [address] PCP - General Family Medicine 06/21/24 documented as of this encounter
--- OUTSIDE RECORDS SUMMARY | 2025-01-16 22:55 | XMS_ITS | Patient Health Record ---
Author Organization [facility] [address] Address [address] [place] [address] Care Team Providers Care Ems Driver Name Role Phone HUAN MENEZESA Primary Care Provider UnavailERIC Kaiser Unavailable [phone] AMY WANG Unavailable [phone] JEANA STEIN Unavailable [phone] Allergies Allergen (clinical drug ingredient) Drug/Non Drug [...] Tablet Sublingual Sublingual; Duration: 28 Days Active Wegovy 0.25mg 0.25 MG/0.5ML Solution Auto-injector Inject 0.25mg Subcutaneous once weekly; Duration: 90 days 09/11/2024 Active Zepbound 2.5 MG/0.5ML Solution Inject 2.5mg Subcutaneous weekly; Duration: 30 days Active Famotidine 40 MG Tablet 1 tablet Orally at bedtime; Duration: 30 days As needed 07/25/2024 Not-Taking Levothyroxine Sodium 25 MCG Tablet Oral; Duration: 90 Days Acti ve Zepbound 2.5 MG/0.5ML Solution Auto-injector Subcutaneous; Duration: 28 Days Not-Taking Social History Section Notes: Tob: Smokes 6 cigarettes/day x14 years Etoh: Denies Drug: Denies. History prescription opioid missuse Tob: Smokes 6 cigarettes/day x14 years Etoh: Denies Drug: Denies. History prescription opioid missuse Tob: Smokes 6 cigarettes/day x14 years Etoh: Denies Drug: Denies. History prescription opioid missuse Tob: Smokes 6 cigarettes/day x14 years Etoh: Denies Drug: Denies. History prescription opioid missuse Tob: Smokes 6 cigarettes/day x14 years Etoh: Denies Drug: Denies. History prescription opioid missuse Problems Problem Type SNOMED Code ICD Code Onset Dates Problem Status W/U Status Risk Notes Problem Overactive bladder (605929108) Overactive bladder (N32.81) Active confirmed Problem Prediabetes (042132964) Prediabetes (R73.03) Active confirmed Problem Morbid obesity (918630727) Morbid obesity (E66.01) Active confirmed Problem Acquired hypothyroidism (983854649) Acquired hypothyroidism (E03.9) Active confirmed Problem Nephrolithiasis (43221298) Nephrolithiasis (N20.0) Active confirmed Problem Body mass index 40+ - morbidly obese (171842640) BMI 40.0-44.9, adult (Z68.41) Active confirmed Problem Indigestion (461536296) Indigestion (K30) Active confirmed Problem History of opioid abuse (824268052418589) History of opioid abuse (F11.11) Active confirmed Vital Signs Heart Rate 83 /min 08/24/2024 Oximetry 98 % 08/24/2024 Blood pressure diastolic 70 mm Hg 08/24/2024 Height 59 in 08/24/2024 Blood pressure systolic 114 mm Hg 08/24/2024 Weight 207.5 lbs 08/24/2024 BMI 41.91 kg/m2 08/24/2024 Encounters Encounter Location Date Provider Diagnosis [facility] [address] [address] 04/19/2024 JEANA STEIN [facility] [address] [address] 04/26/2024 JEANA STEIN [facility] [address] [place] [address] 05/01/2024 AMY WANG [facility] [address] [place] [address] 05/08/2024 TALAL WANG [facility] [address] [place] [address] 05/23/2024 TALAL WANG [facility] [address] [place] [address] 05/29/2024 AMY WANG [facility] [address] [facility] [address] [place] [address] 06/08/2024 JEANA STEIN [facility] [address] [facility] [address] [place] [address] 04/11/2024 [facility] Morbid obesity E66.0 1 ; BMI 45.0-49.9, adult Z68.42 ; Prediabetes R73.03 and Acquired hypothyroidism E03.9 [facility] [address] [facility] [address] [place] [address] 05/16/2024 [facility] Morbid obesity E66.0 1 ; BMI 40.0-44.9, adult Z68.41 ; Prediabetes R73.03 ; Acquired hypothyroidism E03.9 and Nutritional counseling Z71.3 [facility] [address] [facility] [address] [place], [place] 06/19/2024 [facility] Morbid obesity E66.0 1 ; BMI 40.0-44.9, adult Z68.41 ; Prediabetes R73.03 ; Acquired hypothyroidism E03.9 ; Nutritional counseling Z71.3 and Encounter for examination of blood pressure without abnormal findings Z01.30 [facility] [address] [facility] [address] [place], [place] 07/25/2024 [facility] Morbid obesity E66.0 1 ; BMI 40.0-44.9, adult Z68.41 ; Prediabetes R73.03 ; Acquired hypothyroidism E03.9 ; Indigestion K30 ; Nutritional counseling Z71.3 and Encounter for examination of blood pressure without abnormal findings Z01.30 [facility] [address] [facility] [address] [place] [address] 08/24/2024 [facility] Morbid obesity E66.0 1 ; BMI 40.0-44.9, adult Z68.41 ; Prediabetes R73.03 ; Acquired hypothyroidism E03.9 ; Nutritional counseling Z71.3 and Encounter for examination of blood pressure without abnormal findings Z01.30 [facility] [address] [facility] [address] [place] [address] 04/11/2024 ERIC PAULY [facility] [address] [place] [address] 05/01/2024 ERIC PAULY [facility] [address] [place] [address] 06/17/2024 ERIC LIUHAM [facility] [address] [place] [address] 06/21/2024 ERIC PAULY [facility] [address] [facility] [address] [place] [address] 08/07/2024 ERIC PAULY [facility] [address] [facility] [address] [place] [address] 06/14/2024 ERIC PAULY [facility] [address] [facility] [address] [place] [address] 07/20/2024 ERIC PAULY [facility] [address] [facility] [address] [place] [address] 07/20/2024 ERIC PAULY [facility] [address] [facility] [address] [place] [address] 07/21/2024 ERIC PAULY [facility] [address] [facility] [address] [place] [address] 07/24/2024 ERIC PAULY [facility] [address] [facility] [address] [place] [address] 08/16/2024 ERIC PAULY [facility] [address] [facility] [address] [place] [address] 09/08/2024 ERIC LIUHAM [facility] [address] [facility] [address] [place] [address] 09/11/2024 ERIC PAULY [facility] [address] [facility] [address] [place] [address] 09/12/2024 [facility] Assessments Encounter Date Diagnosis (ICD Code) Assessment Notes Treatment Notes Treatment Clinical Notes Section Notes 04/11/2024 Morbid obesity (ICD-10 - E66.01) Bradley is a 43-year-old female with a PMH [...] reviewed. Dictation completed with the use of [employer] voice recognition software, prone to medical misidentifications and grammatical errors. All errors are unintentional. Although the practitioner does try to identify and correct errors, some may be present. Please do not hesitate to contact the practitioner for clarification. Total time was 60 minutes spent with >50% on coordination of care and patient education. 04/11/2024 BMI 45.0-49.9, adult (ICD-10 - Z68.42) Bradley is a 43-year-old female with a PMH [...] reviewed. Dictation completed with the use of [employer] voice recognition software, prone to medical misidentifications and grammatical errors. All errors are unintentional. Although the practitioner does try to identify and correct errors, some may be present. Please do not hesitate to contact the practitioner for clarification. Total time was 60 minutes spent with >50% on coordination of care and patient education. 05/16/2024 Morbid obesity (ICD-10 - E66.01) Bradley is a 43-year-old female with a H [...] reviewed. Dictation completed with the use of [employer] voice recognition software, prone to medical misidentifications and grammatical errors. All errors are unintentional. Although the practitioner does try to identify and correct errors, some may be present. Please do not hesitate to contact the practitioner for clarification. Total time was 30 minutes spent with >50% on coordination of care and patient education. 05/16/2024 BMI 40.0-44.9, adult (ICD-10 - Z68.41) Bradley is a 43-year-old female with a PMH [...] reviewed. Dictation completed with the use of [employer] voice recognition software, prone to medical misidentifications and grammatical errors. All errors are unintentional. Although the practitioner does try to identify and correct errors, some may be present. Please do not hesitate to contact the practitioner for clarification. Total time was 30 minutes spent with >50% on coordination of care and patient education. 06/19/2024 Morbid obesity (ICD-10 - E66.01) Bradley is a 43-year-old female with a H [...] reviewed. Dictation completed with the use of [employer] voice recognition software, prone to medical misidentifications and grammatical errors. All errors are unintentional. Although the practitioner does try to identify and correct errors, some may be present. Please do not hesitate to contact the practitioner for clarification. Total time was 30 minutes spent with >50% on coordination of care and patient education. 06/19/2024 BMI 40.0-44.9, adult (ICD-10 - Z68.41) Bradley is a 43-year-old female with a PMH [...] reviewed. Dictation completed with the use of [employer] voice recognition software, prone to medical misidentifications and grammatical errors. All errors are unintentional. Although the practitioner does try to identify and correct errors, some may be present. Please do not hesitate to contact the practitioner for clarification. Total time was 30 minutes spent with >50% on coordination of care and patient education. 07/25/2024 BMI 40.0-44.9, adult (ICD-10 - Z68.41) Bradley is a 44-year-old female with a PMH [...] reviewed. Dictation completed with the use of [employer] voice recognition software, prone to medical misidentifications and grammatical errors. All errors are unintentional. Although the practitioner does try to identify and correct errors, some may be present. Please do not hesitate to contact the practitioner for clarification. Total time was 30 minutes spent with >50% on coordination of care and patient education. 07/25/2024 Morbid obesity (ICD-10 - E66.01) Bradley is a 44-year-old female with a H [...] reviewed. Dictation completed with the use of [employer] voice recognition software, prone to medical misidentifications and grammatical errors. All errors are unintentional. Although the practitioner does try to identify and correct errors, some may be present. Please do not hesitate to contact the practitioner for clarification. Total time was 30 minutes spent with >50% on coordination of care and patient education. 08/24/2024 Morbid obesity (ICD-10 - E66.01) Bradley is a 44-year-old female with a PMH [...] reviewed. Dictation completed with the use of [employer] voice recognition software, prone to medical misidentifications and grammatical errors. All errors are unintentional. Although the practitioner does try to identify and correct errors, some may be present. Please do not hesitate to contact the practitioner for clarification. Total time was 30 minutes spent with >50% on coordination of care and patient education. 08/24/2024 BMI 40.0-44.9, adult (ICD-10 - Z68.41) Bradley is a 44-year-old female with a PMH [...] reviewed. Dictation completed with the use of [employer] voice recognition software, prone to medical misidentifications and grammatical errors. All errors are unintentional. Although the practitioner does try to identify and correct errors, some may be present. Please do not hesitate to contact the practitioner for clarification. Total time was 30 minutes spent with >50% on coordination of care and patient education. 08/24/2024 Prediabetes (ICD-10 - R73.03) Bradley is a 44-year-old female with a PMH [...] reviewed. Dictation completed with the use of [employer] voice recognition software, prone to medical misidentifications and grammatical errors. All errors are unintentional. Although the practitioner does try to identify and correct errors, some may be present. Please do not hesitate to contact the practitioner for clarification. Total time was 30 minutes spent with >50% on coordination of care and patient education. 06/19/2024 Prediabetes (ICD-10 - R73.03) Bradley is a 43-year-old female with a PMH [...] reviewed. Dictation completed with the use of [employer] voice recognition software, prone to medical misidentifications and grammatical errors. All errors are unintentional. Although the practitioner does try to identify and correct errors, some may be present. Please do not hesitate to contact the practitioner for clarification. Total time was 30 minutes spent with >50% on coordination of care and patient education. 07/25/2024 Prediabetes (ICD-10 - R73.03) Bradley is a 44-year-old female with a PMH [...] reviewed. Dictation completed with the use of [employer] voice recognition software, prone to medical misidentifications and grammatical errors. All errors are unintentional. Although the practitioner does try to identify and correct errors, some may be present. Please do not hesitate to contact the practitioner for clarification. Total time was 30 minutes spent with >50% on coordination of care and patient education. 04/11/2024 Prediabetes (ICD-10 - R73.03) Bradley is a 43-year-old female with a H [...] reviewed. Dictation completed with the use of [employer] voice recognition software, prone to medical misidentifications and grammatical errors. All errors are unintentional. Although the practitioner does try to identify and correct errors, some may be present. Please do not hesitate to contact the practitioner for clarification. Total time was 60 minutes spent with >50% on coordination of care and patient education. 05/16/2024 Prediabetes (ICD-10 - R73.03) Bradley is a 43-year-old female with a H [...] reviewed. Dictation completed with the use of [employer] voice recognition software, prone to medical misidentifications and grammatical errors. All errors are unintentional. Although the practitioner does try to identify and correct errors, some may be present. Please do not hesitate to contact the practitioner for clarification. Total time was 30 minutes spent with >50% on coordination of care and patient education. 04/11/2024 Acquired hypothyroidism (ICD-10 - E03.9) Bradley is a 43-year-old female with a PMH [...] reviewed. Dictation completed with the use of [employer] voice recognition software, prone to medical misidentifications and grammatical errors. All errors are unintentional. Although the practitioner does try to identify and correct errors, some may be present. Please do not hesitate to contact the practitioner for clarification. Total time was 60 minutes spent with >50% on coordination of care and patient education. 05/16/2024 Acquired hypothyroidism (ICD-10 - E03.9) Bradley is a 43-year-old female with a PMH [...] reviewed. Dictation completed with the use of [employer] voice recognition software, prone to medical misidentifications and grammatical errors. All errors are unintentional. Although the practitioner does try to identify and correct errors, some may be present. Please do not hesitate to contact the practitioner for clarification. Total time was 30 minutes spent with >50% on coordination of care and patient education. 06/19/2024 Acquired hypothyroidism (ICD-10 - E03.9) Bradley is a 43-year-old female with a PMH [...] reviewed. Dictation completed with the use of [employer] voice recognition software, prone to medical misidentifications and grammatical errors. All errors are unintentional. Although the practitioner does try to identify and correct errors, some may be present. Please do not hesitate to contact the practitioner for clarification. Total time was 30 minutes spent with >50% on coordination of care and patient education. 08/24/2024 Acquired hypothyroidism (ICD-10 - E03.9) Bradley is a 44-year-old female with a PMH [...] reviewed. Dictation completed with the use of [employer] voice recognition software, prone to medical misidentifications and grammatical errors. All errors are unintentional. Although the practitioner does try to identify and correct errors, some may be present. Please do not hesitate to contact the practitioner for clarification. Total time was 30 minutes spent with >50% on coordination of care and patient education. 07/25/2024 Acquired hypothyroidism (ICD-10 - E03.9) Bradley is a 44-year-old female with a PMH [...] education. 08/24/2024 Nutritional counseling (ICD-10 - Z71.3) Bradley is a 44-year-old female with a PMH [...] reviewed. Dictation completed with the use of [employer] voice recognition software, prone to medical misidentifications and grammatical errors. All errors are unintentional. Although the practitioner does try to identify and correct errors, some may be present. Please do not hesitate to contact the practitioner for clarification. Total time was 30 minutes spent with >50% on coordination of care and patient education. 06/19/2024 Nutritional counseling (ICD-10 - Z71.3) Bradley is a 43-year-old female with a PMH [...] reviewed. Dictation completed with the use of [employer] voice recognition software, prone to medical misidentifications and grammatical errors. All errors are unintentional. Although the practitioner does try to identify and correct errors, some may be present. Please do not hesitate to contact the practitioner for clarification. Total time was 30 minutes spent with >50% on coordination of care and patient education. 07/25/2024 Indigestion (ICD-10 - K30) Bradley is a 44-year-old female with a H [...] reviewed. Dictation completed with the use of [employer] voice recognition software, prone to medical misidentifications and grammatical errors. All errors are unintentional. Although the practitioner does try to identify and correct errors, some may be present. Please do not hesitate to contact the practitioner for clarification. Total time was 30 minutes spent with >50% on coordination of care and patient education. 05/16/2024 Nutritional counseling (ICD-10 - Z71.3) Bradley is a 43-year-old female with a PMH [...] reviewed. Dictation completed with the use of [employer] voice recognition software, prone to medical misidentifications [...] pressure without abnormal findings (ICD-10 - Z01.30) Bradley is a 43-year-old female with a PMH [...] reviewed. Dictation completed with the use of [employer] voice recognition software, prone to medical misidentifications and grammatical errors. All errors are unintentional. Although the practitioner does try to identify and correct errors, some may be present. Please do not hesitate to contact the practitioner for clarification. Total time was 30 minutes spent with >50% on coordination of care and patient education. 07/25/2024 Nutritional counseling (ICD-10 - Z71.3) Bradley is a 44-year-old female with a H [...] reviewed. Dictation completed with the use of [employer] voice recognition software, prone to medical misidentifications [...] pressure without abnormal findings (ICD-10 - Z01.30) Bradley is a 44-year-old female with a PMH [...] reviewed. Dictation completed with the use of [employer] voice recognition software, prone to medical misidentifications [...] pressure without abnormal findings (ICD-10 - Z01.30) Bradley is a 44-year-old female with a PMH [...] reviewed. Dictation completed with the use of [employer] voice recognition software, prone to medical misidentifications [...] Insured Coverage Start Date Coverage End Date [facility] [address] [place] [address] [phone] [id number] BRADLEY LINDSEY Self - patient is the insured [...]
== END 2025-01-16 16:21 | disposition home or self-care (01) ==
LOC: HO.US 16:20
PROVIDERS: PCP Nurse Practitioner; Visit Provider Urology
DX: N20.0 Calculus of kidney (principal)
CPT/HCPCS: 76775

== ENCOUNTER → 2025-01-16 16:24 | Outpatient (BNV) | payer BC, SELFPAY | PROVIDERS: PCP Nurse Practitioner; Visit Provider Radiology Diagnostic Radiology | DX: N20.0 Calculus of kidney (principal) | CPT/HCPCS: 76775 ==

== ENCOUNTER 2025-01-17 14:43 | Outpatient (AMB) | payer BC, SELFPAY ==
--- NOTE | 2025-01-17 14:58 | A.OFFVIS_ITS ---
Intake Visit Reasons: 3M US/PVR(US 01/16) Intake Note: Reason for Visit: Ultrasound/PVR/UA Urology Meds: Trimethoprim(Suppression) Blood Thinners: None Labs: None Imaging: Renal Ultrasound- 01/11/2025 Last PVR:None All Source Collection Manager Required: No Allergies amoxicillin (AMOXICILLIN) Allergy (Unknown, Verified 01/17/25 15:00) RASH Penicillins (PENICILLINS) Allergy (Unknown, Verified 01/17/25 15:00) RASH Sulfa (Sulfonamide Antibiotics) (SULFA(SULFONAMIDE ANTIBIOTICS)) Allergy (Unknown, Verified 01/17/25 15:00) DIFFICULTY BREATHING HPI Comments Details: Dai is a pleasant female. She is a patient of . She is seen for the following urologic conditions - nephrolithiasis Recurrent stone former - stone composition struvite 70%, appetite 30% Completed three-month trimethoprim suppression No stone seen on follow-up ureteroscopy Is feeling substantially improved Would like to stay on nephrolithiasis for six-month small with follow-up ultrasound Nephrolithiasis initial evaluation for nephrolithiasis, recurrent stone former First stone form 2023. Recurrent formation. Imaging - 08/02 CT Scan bilateral stones Stone composition - 70% struvite 24 hour urine evaluation - none on file Interventions - 08/02 bilateral ureteroscopy - Dr Silva Current therapeutic plan - surveillance imaging - low-dose suppression antibiotic for 3 to six-month REPLACED BY [facility] Medical History Major depression History of kidney stones Urgency incontinence Hydronephrosis H/O urinary frequency Surgical History Previous section Results AMB Urinalysis, Automated UA Leukoctes 0 Sarmad/uL Last Edit by KIMBERLY Friend on 01/17/25 15:07 UA Nitrite Negative Last Edit by KIMBERLY Friend on 01/17/25 15:07 UA Urobilinogen 0.2 mg/dL Last Edit by KIMBERLY Friend on 01/17/25 15:0 7 UA Protein 15 mg/dL Last Edit by KIMBERLY Friend on 01/17/25 15:07 UA pH 6.0 Last Edit by KIMBERLY Friend on 01/17/25 15:07 UA Blood 10 Guru/uL Last Edit by Sondra Leger, RMA on 01/17/25 15:07 UA Specific [place] 1.030 Last Edit by Sondra Leger, RMA on 01/17/25 15: 07 UA Ketone Positive Last Edit by Sondra Leger, RMA on 01/17/25 15:07 UA Bilirubin 1 mg/dL Last Edit by Sondra Leger, RMA on 01/17/25 15:07 UA Glucose 0 mg/dL Last Edit by Sondra Leger, RMA on 01/17/25 15:07 Results Reviewed Results Reviewed: Laboratory Last Values Urine pH (Auto) 6.0 01/17/25 15:05 Specific [place] (Auto) 1.030 01/17/25 15:05 Urine Protein (Auto) 15 mg/dL 01/17/25 15:05 Glucose (UA)(Auto) 0 mg/dL 01/17/25 15:05 Urine Ketones (Auto) Positive 01/17/25 15:05 Urine Blood (Auto) 10 Guru/uL 01/17/25 15:05 Urine Nitrite (Auto) Negative 01/17/25 15:05 Urine Bilirubin (Auto) 1 mg/dL 01/17/25 15:05 Urine Urobilinogen (Auto) 0.2 mg/dL 01/17/25 15:05 Leukocyte Esterase (Auto) 0 Sarmad/uL 01/17/25 15:05 Assessment & Plan Assessment & Plan Orders: Orders AMB Urinalysis Automated Today Z13.9 - Encounter for screening, unspecified US renal BI 6 Months N20.0 - Calculus of kidney Medications: Refilled trimethoprim 100 mg PO DAILY 90 tabs 1RF 90 days N20.0 - Calculus of kidney, R33.9 - Retention of urine, unspecified Coding
== END 2025-01-17 15:32 | disposition home or self-care (01) ==
LOC: HO.HUSH 14:44
PROVIDERS: PCP Nurse Practitioner; Visit Provider Urology
DX: Z13.9 Encounter for screening, unspecified (principal)

== ENCOUNTER → 2025-01-17 | Outpatient (BNVA) | payer BC, SELFPAY | PROVIDERS: PCP Nurse Practitioner; Visit Provider Urology | DX: N20.0 Calculus of kidney (principal); R33.9 Retention of urine, unspecified; Z79.899 Other long term (current) drug therapy | CPT/HCPCS: 81003 ==